=== PATIENT | female | born 1955 | race American Indian/Alaskan Native ===

== ENCOUNTER 2018-07-29 09:36 | Emergency (ER) | payer OTHER ==
[2018-07-29 10:00] VITALS: BP 159/59
--- NOTE | 2018-07-29 10:51 | Emergency Department Report ---
HPI - General Chief Complaint: Extremity Injury, Lower Time Seen by Provider: 07/29/18 10:27 - HPI HPI: 62-year-old female presents to the emergency department with a complaint of soreness to the anterior right knee after she had a fall about 1 week ago. She says that she either lost her balance or tripped on something but fell directly onto her knees. She has a past medical history of asthma, diabetes, high cholesterol, osteoarthritis of the knees. She is from [facility] and therefore does not have any local primary care physician or orthopedist. The patient has been able to ambulate since the fall/injury. ED Past Medical Hx - Past Medical History Previous Medical History?: Yes Hx Diabetes: Yes Hx Asthma: Yes Additional medical history: High cholesterol, Arthritis in knees - Surgical History Past Surgical History?: Yes Additional Surgical History: Robin Carpel tunnel surgery, C-sections x 2 - Social History Smoking Status: Never Smoker Substance Use Type: Prescribed - Medications Home Medications: Home Medications Medication Instructions Recorded Confirmed Last Taken Type HYDROcodone/APAP 5-325 [[place] 1 each PO Q6HR PRN #10 tablet 07/29/18 Unknown Rx 5/325] ED Review of Systems ROS: Stated complaint: KNEE INJURY Other details as noted in HPI Comment: All other systems reviewed and negative Musculoskeletal: arthralgia, myalgia. denies: back pain, joint swelling Neurological: denies: numbness, paresthesias Physical Exam - Physical Exam Vital Signs: Vital Signs 07/29/18 09:55 Temperature 98.1 F Pulse Rate 79 Respiratory 18 Rate Blood Pressure 159/59 O2 Sat by Pulse 99 Oximetry Physical Exam: GENERAL: The patient is well-developed well-nourished. HENT: Normocephalic. Atraumatic. Patient has moist mucous membranes. EYES: Extraocular motions are intact. NECK: Supple. Trachea is midline. CHEST/LUNGS: Clear to auscultation. There is no respiratory distress noted. HEART/CARDIOVASCULAR: Regular. There is no tachycardia. There is no murmur. ABDOMEN: There is no abdominal distention. SKIN: Skin is warm and dry. NEURO: The patient is awake, alert, and oriented. The patient is cooperative. The patient has no focal neurologic deficits. The patient has normal speech. MUSCULOSKELETAL: There is mild tenderness to palpation of the right anterior knee. No obvious deformity. Negative anterior and posterior drawer test and no laxity with valgus or varus stress of the affected right knee. ED Course Vital Signs 07/29/18 09:55 Temperature 98.1 F Pulse Rate 79 Respiratory 18 Rate Blood Pressure 159/59 O2 Sat by Pulse 99 Oximetry ED Medical Decision Making - Radiology Data Radiology results: image reviewed interpreted by me: X-ray of the right knee shows some arthritic changes but otherwise no fracture, dislocation or any acute process. I also reviewed with the radiology reading that agrees with the arthritic changes but also mentions a sclerotic lesion that needs follow-up regarding ruling out malignancy - Medical Decision Making This patient presents to the emergency department with right knee pain after having a fall 1 week prior. Since that time she has been walking around and ambulating and bearing weight on the affected right knee. On examination she has some mild tenderness to palpation but no obvious deformity. Negative anterior and posterior drawer test. No laxity to valgus or varus stress. X-ray shows some arthritic changes but otherwise no obvious acute process. She was given a small prescription for pain medication and some referrals for orthopedist. If she decides to return home to [place], she has been instructed to follow up with primary care and an orthopedist there. She will return to the ER with any worsening of her symptoms or any acute distress. - Differential Diagnosis osteoarthritis, joint effusion, fracture, dislocation Critical Care Time: No Critical care attestation.: If time is entered above; I have spent that time in minutes in the direct care of this critically ill patient, excluding procedure time. ED Disposition Clinical Impression: Fall Qualifiers: Encounter type: initial encounter Qualified Code(s): W19.XXXA - Unspecified fall, initial encounter Right knee pain Qualifiers: Chronicity: unspecified Qualified Code(s): M25.561 - Pain in right knee Disposition: DC-01 TO HOME OR SELFCARE Is pt being admited?: No Condition: Stable Instructions: Knee Pain (ED), Arthralgia (ED), Fall Prevention (ED) Additional Instructions: I am giving you a referral for two local orthopedic groups, to follow up regarding your knee pain, in case you decide to stay in [place]. If you go back to [place], make sure to follow up with primary care and an orthopedist. Return to the emergency Department with any worsening of your symptoms or any acute distress. You have been prescribed a medication that is sedating and therefore should not be taken prior to driving, working, and responsible for children and in no way should be mixed with alcohol of any quantity. Prescriptions: HYDROcodone/APAP 5-325 [[place] 5/325] 1 each PO Q6HR PRN #10 tablet PRN Reason: Pain Referrals: CIRO ABDI MD [Staff Physician] - 2-3 Days [facility] [Provider Group] - 2-3 Days Time of Disposition: 11:38
--- NOTE | 2018-07-29 12:32 | XRay Report ---
EXAM: XR KNEE 3V RT HISTORY: knee pain TECHNIQUE: 4 views COMPARISON: None available. FINDINGS: There is no acute bony fracture, or joint subluxation or dislocation seen. There is an approximately 7.6 mm CC by 5.3 mm transverse sclerotic lesion within the medial femoral epicondyle which may repres ent a bone island; sclerotic metastatic lesion cannot entirely exclude. Consider 6-12 month follow-up evaluation ensure interval stability as clinically warranted. No focal bone erosion is seen. There i s tricompartment osteoarthritis, especially prominent in the lateral joint compartment and patellofem oral joint, marked by mild joint space narrowing and mild marginal osteophytosis. No evidence for inf lammatory or erosive arthritis is seen. No suprapatellar soft tissue density reminiscent of a gross j oint effusion is seen. No radiodense soft tissue abnormality or foreign body is seen. IMPRESSION: 1. No acute bony fracture, or joint subluxation or dislocation seen. 2. Tricompartment osteoarthritis, especially prominent in the lateral joint compartment and patellof emoral joint, marked by mild joint space narrowing and mild marginal osteophytosis. 3. Approximately 7.6 mm CC by 5.3 mm transverse sclerotic lesion within the medial femoral epicondyl e which may represent a bone island; sclerotic metastatic lesion cannot entirely exclude. Consider 6- 12 month follow-up evaluation ensure interval stability as clinically warranted. No focal bone erosio n is seen. 4. No radiodense soft tissue abnormality or foreign body seen. This document is electronically signed by Alec Steele MD., July 29 2018 12:30:42 PM [facility]
== END 2018-07-29 11:47 | disposition home or self-care (01) ==
LOC: ED 09:36
DX: M25.561 Pain in right knee (principal); E11.9 Type 2 diabetes mellitus without complications; J45.909 Unspecified asthma, uncomplicated; E78.5 Hyperlipidemia, unspecified

== ENCOUNTER 2018-10-14 17:41 | Emergency (ER) | payer OTHER ==
[2018-10-14 18:13] VITALS: BP 180/98
[2018-10-14] MEDS ORDERED: DECADRON IM ONE (19:24)
[2018-10-14] MEDS ORDERED: PROVENTIL IH ONE (19:24)
--- NOTE | 2018-10-14 19:56 | Emergency Department Report ---
ED Shortness of Breath HPI - General Chief Complaint: Dyspnea/Respdistress Stated Complaint: SOB/DIZZY Time Seen by Provider: 10/14/18 19:10 Source: patient Mode of arrival: Ambulatory Limitations: No Limitations - History of Present Illness Initial Comments: Patient is a 52-year-old Afro-[place] female with history of asthma and hypertension who presents with shortness of breath dizziness 1 episode today is no chest pain no nausea vomiting diaphoresis no back pain . Symptoms are exacerbated by environmental exposure. pt attempt albuterol inhaler at home x 1 pt there is no fever or chills. MD Complaint: shortness of breath, cough, "asthma attack" Onset/Timin -: days(s) Severity: moderate Pain Scale: 5 Consistency: constant Improves With: nothing Worsens With: exertion Known History Of: asthma Associated Symptoms: cough Treatments Prior to Arrival: bronchodilator - Related Data Previous Rx's Medication Instructions Recorded Last Taken Type HYDROcodone/APAP 5-325 [[place] 1 each PO Q6HR PRN #10 tablet 07/29/18 Unknown Rx 5/325] Acetaminophen [Acetaminophen TAB] 1,000 mg PO Q6HR PRN #30 tablet 10/14/18 Unknown Rx Azithromycin [Zithromax Z-ZEE] 250 mg PO DAILY #6 tab 10/14/18 Unknown Rx Benzonatate [Tessalon Perles] 100 mg PO Q8HR PRN #30 capsule 10/14/18 Unknown Rx dexAMETHasone [Decadron] 4 mg PO Q12H 3 Days #6 tablet 10/14/18 Unknown Rx Allergies Allergy/AdvReac Type Severity Reaction Status Date / Time No Known Allergies Allergy Unverified 07/29/18 09:54 ED Review of Systems ROS: Stated complaint: SOB/DIZZY Other details as noted in HPI Constitutional: denies: chills, fever Eyes: denies: eye pain, eye discharge, vision change ENT: denies: ear pain, throat pain Respiratory: cough, shortness of breath, wheezing Cardiovascular: denies: chest pain, palpitations, paroxysmal nocturnal dyspnea Endocrine: no symptoms reported Gastrointestinal: denies: abdominal pain, nausea, vomiting, diarrhea Genitourinary: denies: urgency, dysuria, discharge Musculoskeletal: denies: back pain, joint swelling, arthralgia Skin: denies: rash, lesions Neurological: denies: headache, weakness, paresthesias Psychiatric: denies: anxiety, depression Hematological/Lymphatic: denies: easy bleeding, easy bruising ED Past Medical Hx - Past Medical History Previous Medical History?: Yes Hx Diabetes: Yes Hx Asthma: Yes Additional medical history: High cholesterol, Arthritis in knees - Surgical History Past Surgical History?: Yes Additional Surgical History: Robin Carpel tunnel surgery, C-sections x 2 - Social History Smoking Status: Never Smoker Substance Use Type: None - Medications Home Medications: Home Medications Medication Instructions Recorded Confirmed Last Taken Type HYDROcodone/APAP 5-325 [[place] 1 each PO Q6HR PRN #10 tablet 07/29/18 Unknown Rx 5/325] Acetaminophen [Acetaminophen TAB] 1,000 mg PO Q6HR PRN #30 tablet 10/14/18 Unknown Rx Azithromycin [Zithromax Z-ZEE] 250 mg PO DAILY #6 tab 10/14/18 Unknown Rx Benzonatate [Tessalon Perles] 100 mg PO Q8HR PRN #30 capsule 10/14/18 Unknown Rx dexAMETHasone [Decadron] 4 mg PO Q12H 3 Days #6 tablet 10/14/18 Unknown Rx ED Physical Exam - General Limitations: No Limitations General appearance: alert, in no apparent distress - Head Head exam: Present: atraumatic, normocephalic - Eye Eye exam: Present: normal appearance, PERRL, EOMI Pupils: Present: normal accommodation - ENT ENT exam: Present: normal orophraynx, mucous membranes moist, TM's normal bilaterally, normal external ear exam - Neck Neck exam: Present: full ROM. Absent: tenderness, lymphadenopathy, thyromegaly - Respiratory Respiratory exam: Present: wheezes. Absent: rales, rhonchi, stridor, chest wall tenderness - Cardiovascular Cardiovascular Exam: Present: regular rate, normal rhythm, normal heart sounds. Absent: systolic murmur, diastolic murmur, rubs, gallop - GI/Abdominal GI/Abdominal exam: Present: soft, normal bowel sounds. Absent: distended, tenderness, bruit, hernia - Rectal Rectal exam: Present: deferred - Extremities Exam Extremities exam: Present: normal inspection, full ROM, normal capillary refill. Absent: tenderness, pedal edema, joint swelling, calf tenderness - Back Exam Back exam: Present: normal inspection, full ROM. Absent: tenderness, CVA tenderness (R), CVA tenderness (L), rash noted - Neurological Exam Neurological exam: Present: alert, oriented X3, CN II-XII intact, normal gait - Psychiatric Psychiatric exam: Present: normal affect, normal mood - Skin Skin exam: Present: warm, dry, intact, normal color. Absent: rash ED Course Vital Signs 10/14/18 10/14/18 17:48 18:08 Temperature 97.8 F Pulse Rate 85 Respiratory 20 16 Rate Blood Pressure 180/98 O2 Sat by Pulse 99 Oximetry ED Medical Decision Making - EKG Data EKG shows normal: sinus rhythm, axis, intervals, QRS complexes, ST-T waves Rate: normal - EKG Data When compared to previous EKG there are: previous EKG unavailable Interpretation: normal EKG (EKG interp by ED attending NSR No ST Elevated DE ) - Radiology Data Radiology results: report reviewed, image reviewed Ordering Physician: QUIRINO BORREGO NP Date of Service: 10/14/18 Procedure(s): XR chest routine 2V Accession Number(s): [id number] cc: QUIRINO BORREGO NP Fluoro Time In Minutes: CHEST 2 VIEWS INDICATION / CLINICAL INFORMATION: Shortness of breath for one week. COMPARISON: None available. FINDINGS: SUPPORT DEVICES: None. HEART / MEDIASTINUM: No significant abnormality. LUNGS / PLEURA: No significant pulmonary or pleural abnormality. No pneumothorax. ADDITIONAL FINDINGS: Moderate thoracic spondylosis is noted without additional s ignificant findings. IMPRESSION: No acute abnormality of the chest. Signer Name: Eduardo Bella MD Signed: 10/14/2018 8:01 PM Workstation Name: [id number] Transcribed By: MN Dictated By: Eduardo Bella MD Electronically Authenticated By: Eduardo Bella MD Signed Date/Time: 10/14/182000 DD/ 99 TD/TT: - Medical Decision Making Symptoms improve the medications given in ED plan DC'd home with the wrong inhaler and prednisone azithromycin Tylenol when necessary Florencia Simon patient will follow up PCP in 2-3 days return to ED should symptoms worsen, wheezing is resolved pt is ambulatory in ed without increase sob or wheezing no cp Critical care attestation.: If time is entered above; I have spent that time in minutes in the direct care of this critically ill patient, excluding procedure time. ED Disposition Clinical Impression: Bronchitis Asthma Qualifiers: Asthma severity: moderate Asthma persistence: persistent Asthma complication type: unspecified Qualified Code(s): J45.40 - Moderate persistent asthma, uncomplicated Disposition: - TO HOME OR SELFCARE Is pt being admited?: No Does the pt Need Aspirin: No Condition: Stable Instructions: Chronic Bronchitis (ED), Asthma (ED) Prescriptions: Acetaminophen [Acetaminophen TAB] 1,000 mg PO Q6HR PRN #30 tablet PRN Reason: pain dexAMETHasone [Decadron] 4 mg PO Q12H 3 Days #6 tablet Benzonatate [Tessalon Perles] 100 mg PO Q8HR PRN #30 capsule PRN Reason: Cough Azithromycin [Zithromax Z-ZEE] 250 mg PO DAILY #6 tab Referrals: JULIANO JUÁREZ MD [Staff Physician] - 3-5 Days Forms: Work/School Release Form(ED) Time of Disposition: 21:07
--- NOTE | 2018-10-14 20:06 | XRay Report ---
CHEST 2 VIEWS INDICATION / CLINICAL INFORMATION: Shortness of breath for one week. COMPARISON: None available. FINDINGS: SUPPORT DEVICES: None. HEART / MEDIASTINUM: No significant abnormality. LUNGS / PLEURA: No significant pulmonary or pleural abnormality. No pneumothorax. ADDITIONAL FINDINGS: Moderate thoracic spondylosis is noted without additional significant findings. IMPRESSION: No acute abnormality of the chest. Signer Name: Eduardo Bella MD Signed: 10/14/2018 8:01 PM Workstation Name: [id number]
== END 2018-10-14 21:10 | disposition home or self-care (01) ==
LOC: ED 17:41
DX: J45.909 Unspecified asthma, uncomplicated (principal); E11.9 Type 2 diabetes mellitus without complications; E78.00 Pure hypercholesterolemia, unspecified; M19.90 Unspecified osteoarthritis, unspecified site; Z98.890 Other specified postprocedural states; Z79.899 Other long term (current) drug therapy
CPT/HCPCS: 71046; 93005; 93010; 96372; 99283; J1100

== ENCOUNTER 2018-10-18 19:24 | Emergency (ER) | payer OTHER ==
--- NOTE | 2018-10-18 20:03 | Event Note ---
ED Screening Note Date of service: 10/18/18 Time: 20:03 ED Screening Note: 62 yo returns cc of sob same as last visit This initial assessment/diagnostic orders/clinical plan/treatment(s) is/are subject to change based on patients health status, clinical progression and re- assessment by fellow clinical providers in the ED. Further treatment and workup at subsequent clinical providers discretion. Patient/guardian urged not to elope from the ED as their condition may be serious if not clinically assessed and managed. Initial orders include:
[2018-10-18 20:29] LABS: Basophils # (Auto) 0.1 K/mm3 (0.0-0.1); Eosinophils # (Auto) 0.1 K/mm3 (0.0-0.4); Eosinophils % (Auto) 1.5 % (0.0-4.3); Hematocrit 40.6 % (30.3-42.9); Hemoglobin 13.7 gm/dl (10.1-14.3); Lymphocytes % (Auto) 30.2 % (13.4-35.0); Mean Corpuscular HGB Conc 34 % (30-34); Mean Corpuscular Volume 86 fl (79-97); Monocytes # (Auto) 0.6 K/mm3 (0.0-0.8); Monocytes % (Auto) 5.8 % (0.0-7.3); Platelet Count 267 K/mm3 (140-440); Red Blood Count 4.73 M/mm3 (3.65-5.03); Red Cell Distribution Width 15.1 % (13.2-15.2)
[2018-10-18 21:00] VITALS: BP 157/85
[2018-10-18 21:02] LABS: Creatine Kinase MB 2.6 ng/mL (0.0-4.0)
[2018-10-18] MEDS ORDERED: DUONEB *Not for PRN Use IH ONE (21:02)
[2018-10-18 21:06] LABS: BUN/Creatinine Ratio 20; Blood Urea Nitrogen 14 mg/dL (7-17); Calcium 9.9 mg/dL (8.4-10.2); Hemolysis Index 0
[2018-10-18] MEDS ORDERED: K-DUR PO ONE (21:10)
--- NOTE | 2018-10-18 21:57 | XRay Report ---
CHEST 1 VIEW 10/18/2018 9:19 PM INDICATION / CLINICAL INFORMATION: productive cough. COMPARISON: Chest x-ray 10/14/2018 FINDINGS: SUPPORT DEVICES: None. HEART / MEDIASTINUM: No significant abnormality. LUNGS / PLEURA: Calcified left lower lobe granuloma, unchanged. No significant pulmonary or pleural a bnormality. No pneumothorax. ADDITIONAL FINDINGS: No significant additional findings. IMPRESSION: 1. No acute findings. Signer Name: Neel Rooney MD Signed: 10/18/2018 9:52 PM Workstation Name: [id number]
--- NOTE | 2018-10-18 22:18 | Emergency Department Report ---
ED Shortness of Breath HPI - General Chief Complaint: Dyspnea/Respdistress Stated Complaint: CRISTOPHER Time Seen by Provider: 10/18/18 20:02 Source: patient Mode of arrival: Ambulatory Limitations: No Limitations - History of Present Illness Initial Comments: Patient is a 62-year-old female with past medical history of COPD/asthma as well as diabetes who is presenting with shortness of breath. Patient is having some increased shortness of breath with cough was productive of clear sputum for last 4 days. Patient states she was here several days ago and was given a prescription for Z-Brodie for acute bronchitis in the setting of COPD. Patient also started on 3 days of Decadron and Tessalon Perles. Patient states she's continued to cough with shortness of breath. Patient denies any chest pain nausea vomiting diarrhea had fevers or chills. Patient states she has continued to have exposure to secondhand smoke. - Related Data Previous Rx's Medication Instructions Recorded Last Taken Type HYDROcodone/APAP 5-325 [[place] 1 each PO Q6HR PRN #10 tablet 07/29/18 Unknown Rx 5/325] Acetaminophen [Acetaminophen TAB] 1,000 mg PO Q6HR PRN #30 tablet 10/14/18 Unknown Rx Azithromycin [Zithromax Z-BRODIE] 250 mg PO DAILY #6 tab 10/14/18 Unknown Rx Benzonatate [Tessalon Perles] 100 mg PO Q8HR PRN #30 capsule 10/14/18 Unknown Rx dexAMETHasone [Decadron] 4 mg PO Q12H 3 Days #6 tablet 10/14/18 Unknown Rx Fluticasone [Flonase] 1 spray NS QDAY #1 bottle 10/18/18 Unknown Rx guaiFENesin/CODEINE [Robitussin AC] 5 ml PO Q6HR PRN #100 oral.liqd 10/18/18 Unknown Rx Allergies Allergy/AdvReac Type Severity Reaction Status Date / Time No Known Allergies Allergy Unverified 07/29/18 09:54 ED Review of Systems ROS: Stated complaint: CRISTOPHER Other details as noted in HPI Comment: All other systems reviewed and negative ED Past Medical Hx - Past Medical History Previous Medical History?: Yes Hx Diabetes: Yes Hx Asthma: Yes Additional medical history: High cholesterol, Arthritis in knees - Surgical History Past Surgical History?: Yes Additional Surgical History: Robin Carpel tunnel surgery, C-sections x 2 - Social History Smoking Status: Never Smoker Substance Use Type: None - Medications Home Medications: Home Medications Medication Instructions Recorded Confirmed Last Taken Type HYDROcodone/APAP 5-325 [[place] 1 each PO Q6HR PRN #10 tablet 07/29/18 Unknown Rx 5/325] Acetaminophen [Acetaminophen TAB] 1,000 mg PO Q6HR PRN #30 tablet 10/14/18 Unknown Rx Azithromycin [Zithromax Z-BRODIE] 250 mg PO DAILY #6 tab 10/14/18 Unknown Rx Benzonatate [Tessalon Perles] 100 mg PO Q8HR PRN #30 capsule 10/14/18 Unknown Rx dexAMETHasone [Decadron] 4 mg PO Q12H 3 Days #6 tablet 10/14/18 Unknown Rx Fluticasone [Flonase] 1 spray NS QDAY #1 bottle 10/18/18 Unknown Rx guaiFENesin/CODEINE [Robitussin AC] 5 ml PO Q6HR PRN #100 oral.liqd 10/18/18 Unknown Rx ED Physical Exam - General Limitations: No Limitations General appearance: alert, in no apparent distress - Head Head exam: Present: atraumatic, normocephalic - Eye Eye exam: Present: normal appearance - ENT ENT exam: Present: mucous membranes moist - Neck Neck exam: Present: normal inspection - Respiratory Respiratory exam: Present: normal lung sounds bilaterally, prolonged expiratory. Absent: respiratory distress, wheezes, rales, rhonchi - Cardiovascular Cardiovascular Exam: Present: regular rate, normal rhythm, normal heart sounds. Absent: systolic murmur, diastolic murmur, rubs, gallop - GI/Abdominal GI/Abdominal exam: Present: soft, normal bowel sounds. Absent: distended, tenderness, guarding, rebound - Extremities Exam Extremities exam: Present: normal inspection - Back Exam Back exam: Present: normal inspection - Neurological Exam Neurological exam: Present: alert, oriented X3 - Psychiatric Psychiatric exam: Present: normal affect, normal mood - Skin Skin exam: Present: warm, dry, intact, normal color. Absent: rash ED Course Vital Signs 10/18/18 10/18/18 20:03 20:59 Temperature 98.7 F Pulse Rate 88 85 Respiratory 20 17 Rate Blood Pressure 161/72 Blood Pressure 157/85 [Left] O2 Sat by Pulse 100 99 Oximetry ED Medical Decision Making - Lab Data Result diagrams: 10/18/18 20:15 10/18/18 20:15 Lab Results 10/18/18 10/18/18 10/18/18 Range/Units 20:15 20:15 20:15 WBC 9.9 (4.5-11.0) K/mm3 RBC 4.73 (3.65-5.03) M/mm3 Hgb 13.7 (10.1-14.3) gm/dl Hct 40.6 (30.3-42.9) % MCV 86 (79-97) fl MCH 29 (28-32) pg MCHC 34 (30-34) % RDW 15.1 (13.2-15.2) % Plt Count 267 (140-440) K/mm3 Lymph % (Auto) 30.2 (13.4-35.0) % [place] % (Auto) 5.8 (0.0-7.3) % Eos % (Auto) 1.5 (0.0-4.3) % Baso % (Auto) 1.0 (0.0-1.8) % Lymph # 3.0 (1.2-5.4) K/mm3 [place] # 0.6 (0.0-0.8) K/mm3 Eos # 0.1 (0.0-0.4) K/mm3 Baso # 0.1 (0.0-0.1) K/mm3 Seg Neutrophils % 61.5 (40.0-70.0) % Seg Neutrophils # 6.1 (1.8-7.7) K/mm3 D-Dimer 199.55 (0-234) ng/mlDDU Sodium 139 (137-145) mmol/L Potassium 2.8 L* (3.6-5.0) mmol/L Chloride 94.0 L (98-107) mmol/L Carbon Dioxide 30 (22-30) mmol/L Anion Gap 18 mmol/L BUN 14 (7-17) mg/dL Creatinine 0.7 (0.7-1.2) mg/dL Estimated GFR > 60 ml/min BUN/Creatinine Ratio 20 % Glucose 271 H (65-100) mg/dL Lactic Acid (0.7-2.0) mmol/L Calcium 9.9 (8.4-10.2) mg/dL Total Creatine Kinase 149 H (30-135) units/L CK-MB (CK-2) 2.6 (0.0-4.0) ng/mL CK-MB (CK-2) Rel Index 1.7 (0-4) 10/18/18 Range/Units Unknown WBC (4.5-11.0) K/mm3 RBC (3.65-5.03) M/mm3 Hgb (10.1-14.3) gm/dl Hct (30.3-42.9) % MCV (79-97) fl MCH (28-32) pg MCHC (30-34) % RDW (13.2-15.2) % Plt Count (140-440) K/mm3 Lymph % (Auto) (13.4-35.0) % [place] % (Auto) (0.0-7.3) % Eos % (Auto) (0.0-4.3) % Baso % (Auto) (0.0-1.8) % Lymph # (1.2-5.4) K/mm3 [place] # (0.0-0.8) K/mm3 Eos # (0.0-0.4) K/mm3 Baso # (0.0-0.1) K/mm3 Seg Neutrophils % (40.0-70.0) % Seg Neutrophils # (1.8-7.7) K/mm3 D-Dimer (0-234) ng/mlDDU Sodium (137-145) mmol/L Potassium (3.6-5.0) mmol/L Chloride (98-107) mmol/L Carbon Dioxide (22-30) mmol/L Anion Gap mmol/L BUN (7-17) mg/dL Creatinine (0.7-1.2) mg/dL Estimated GFR ml/min BUN/Creatinine Ratio % Glucose (65-100) mg/dL Lactic Acid 2.40 H* (0.7-2.0) mmol/L Calcium (8.4-10.2) mg/dL Total Creatine Kinase (30-135) units/L CK-MB (CK-2) (0.0-4.0) ng/mL CK-MB (CK-2) Rel Index (0-4) - Radiology Data Chest x-ray within normal limits - Medical Decision Making Chest the patient has returned with continued shortness of breath with cough d- dimer was ordered to rule out a possibility for PE. This was negative. Patient given a neb treatment was did help with her symptoms. Patient likely with a acute exacerbation of chronic bronchitis. Patient was referred to pulmonology for further care. Patient given some additional medications for her cough. Patient discharged home. Critical care attestation.: If time is entered above; I have spent that time in minutes in the direct care of this critically ill patient, excluding procedure time. ED Disposition Clinical Impression: Chronic bronchitis with acute exacerbation Disposition: DC-01 TO HOME OR SELFCARE Is pt being admited?: No Does the pt Need Aspirin: No Condition: Stable Instructions: Chronic Bronchitis (ED) Referrals: GENIE COLIN MD [Staff Physician] - 3-5 Days Time of Disposition: 22:18
== END 2018-10-18 23:25 | disposition home or self-care (01) ==
LOC: ED 19:24
DX: J20.9 Acute bronchitis, unspecified (principal); J42 Unspecified chronic bronchitis; E11.9 Type 2 diabetes mellitus without complications; E78.00 Pure hypercholesterolemia, unspecified; M19.90 Unspecified osteoarthritis, unspecified site; Z98.890 Other specified postprocedural states; Z79.899 Other long term (current) drug therapy
CPT/HCPCS: 36415; 71045; 80048; 82140; 82550; 82553; 85025; 85379; 94640; 94644; 99284

== ENCOUNTER 2019-03-10 18:49 | Emergency (ER) | payer OTHER ==
--- NOTE | 2019-03-10 19:22 | Emergency Department Report ---
Blank Doc - Documentation Documentation: 63-year-old female that presents with right arm pain. Denies any injuries. This initial assessment/diagnostic orders/clinical plan/treatment(s) is/are subject to change based on patient's health status, clinical progression and re- assessment by fellow clinical providers in the ED. Further treatment and workup at subsequent clinical providers discretion. Patient/guardians urged not to elope from the ED as their condition may be serious if not clinically assessed and managed. Initial orders include: 1- Patient sent to [facility] for further evaluation and treatment 2- Doppler US for right arm
[2019-03-10 22:54] VITALS: BP 140/62
--- NOTE | 2019-03-10 22:58 | XRay Report ---
CHEST 1 VIEW INDICATION: MAIN: Chest Pain FOR 2 TO 3 DAYS. COMPARISON: 10/18/2018 FINDINGS: Support devices: None. Heart: Normal. Lungs/Pleura: No acute pulmonary or pleural findings. IMPRESSION: 1. No acute findings. Signer Name: Humble Pacheco MD Signed: 03/10/2019 10:53 PM Workstation Name: [id number]
[2019-03-10 23:46] LABS: Basophils # (Auto) 0.1 K/mm3 (0.0-0.1); Basophils % (Auto) 0.6 % (0.0-1.8); Eosinophils # (Auto) 0.1 K/mm3 (0.0-0.4); Eosinophils % (Auto) 1.1 % (0.0-4.3); Hematocrit 40.2 % (30.3-42.9); Hemoglobin 13.4 gm/dl (10.1-14.3); Lymphocytes # (Auto) 2.6 K/mm3 (1.2-5.4); Lymphocytes % (Auto) 27.3 % (13.4-35.0); Mean Corpuscular HGB Conc 33 % (30-34); Mean Corpuscular Volume 86 fl (79-97); Monocytes # (Auto) 0.6 K/mm3 (0.0-0.8); Monocytes % (Auto) 6.1 % (0.0-7.3); Platelet Count 269 K/mm3 (140-440); Red Blood Count 4.68 M/mm3 (3.65-5.03); Red Cell Distribution Width 15.4 % (13.2-15.2)
[2019-03-11 00:13] LABS: Alanine Aminotransferase 13 units/L (7-56); Albumin 4.3 g/dL (3.9-5); BUN/Creatinine Ratio 20; Blood Urea Nitrogen 12 mg/dL (7-17); Hemolysis Index 14
--- NOTE | 2019-03-11 00:29 | Emergency Department Report ---
ED General Adult HPI - General Chief complaint: Extremity Injury, Upper Stated complaint: RT ARM PAIN/CRISTOPHER Time Seen by Provider: 03/10/19 19:20 Source: patient Mode of arrival: Ambulatory Limitations: No Limitations - History of Present Illness Initial comments: Mrs. Sahu is a 63 yo female with history of hypertension diabetes mellitus dyslipidemia and arthritis in the knees presents with right arm pain for several days. Pain is in the right upper bicep. Worse with movement. Mild soreness. Upon further questioning she's had mild chest tightness with shortness of breath intermittently. Pain is nondescript and mild. No association with exertion. She states that she's been stressed with her grandcharlie. She is visiting her daughter from [place]. She also was concerned about getting sick. She was without her medications for several days due to insurance issues. She was able to obtain her prescriptions a few days ago. -: Gradual, days(s) (a few days) Location: right, upper extremity Severity scale (0 -10): 5 Quality: aching Consistency: intermittent Improves with: rest Worsens with: movement Associated Symptoms: chest pain, shortness of breath Treatments Prior to Arrival: none - Related Data Previous Rx's Medication Instructions Recorded Last Taken Type HYDROcodone/APAP 5-325 [[place] 1 each PO Q6HR PRN #10 tablet 07/29/18 Unknown Rx 5/325] Acetaminophen [Acetaminophen TAB] 1,000 mg PO Q6HR PRN #30 tablet 10/14/18 Unknown Rx Azithromycin [Zithromax Z-ZEE] 250 mg PO DAILY #6 tab 10/14/18 Unknown Rx Benzonatate [Tessalon Perles] 100 mg PO Q8HR PRN #30 capsule 10/14/18 Unknown Rx dexAMETHasone [Decadron] 4 mg PO Q12H 3 Days #6 tablet 10/14/18 Unknown Rx Fluticasone [Flonase] 1 spray NS QDAY #1 bottle 10/18/18 Unknown Rx guaiFENesin/CODEINE [Robitussin AC] 5 ml PO Q6HR PRN #100 oral.liqd 10/18/18 Unknown Rx Allergies Allergy/AdvReac Type Severity Reaction Status Date / Time No Known Allergies Allergy Unverified 07/29/18 09:54 ED Review of Systems ROS: Stated complaint: RT ARM PAIN/CRISTOPHER Other details as noted in HPI Comment: All other systems reviewed and negative Constitutional: denies: fever, malaise Respiratory: shortness of breath. denies: cough Cardiovascular: chest pain Gastrointestinal: denies: abdominal pain, nausea, vomiting ED Past Medical Hx - Past Medical History Previous Medical History?: Yes Hx Diabetes: Yes Hx Asthma: Yes Additional medical history: High cholesterol, Arthritis in knees - Surgical History Past Surgical History?: Yes Additional Surgical History: Robin Carpel tunnel surgery, C-sections x 2 - Social History Smoking Status: Never Smoker Substance Use Type: None - Medications Home Medications: Home Medications Medication Instructions Recorded Confirmed Last Taken Type HYDROcodone/APAP 5-325 [[place] 1 each PO Q6HR PRN #10 tablet 07/29/18 Unknown Rx 5/325] Acetaminophen [Acetaminophen TAB] 1,000 mg PO Q6HR PRN #30 tablet 10/14/18 Unknown Rx Azithromycin [Zithromax Z-ZEE] 250 mg PO DAILY #6 tab 10/14/18 Unknown Rx Benzonatate [Tessalon Perles] 100 mg PO Q8HR PRN #30 capsule 10/14/18 Unknown Rx dexAMETHasone [Decadron] 4 mg PO Q12H 3 Days #6 tablet 10/14/18 Unknown Rx Fluticasone [Flonase] 1 spray NS QDAY #1 bottle 10/18/18 Unknown Rx guaiFENesin/CODEINE [Robitussin AC] 5 ml PO Q6HR PRN #100 oral.liqd 10/18/18 Unknown Rx ED Physical Exam - General Limitations: No Limitations General appearance: alert, in no apparent distress - Head Head exam: Present: atraumatic, normocephalic - Eye Eye exam: Present: normal appearance - ENT ENT exam: Present: mucous membranes moist - Neck Neck exam: Present: normal inspection, full ROM - Respiratory Respiratory exam: Present: normal lung sounds bilaterally. Absent: respiratory distress, wheezes, rales, rhonchi - Cardiovascular Cardiovascular Exam: Present: regular rate, normal rhythm, normal heart sounds. Absent: systolic murmur, diastolic murmur, rubs, gallop - GI/Abdominal GI/Abdominal exam: Present: soft, normal bowel sounds. Absent: distended, tenderness, guarding, rebound - Extremities Exam Extremities exam: Present: normal inspection, normal capillary refill - Expanded Upper Extremity Exam Right Shoulder Exam: Present: normal inspection, full ROM. Absent: tenderness, swelling Upper Arm exam: Present: normal inspection, full ROM. Absent: tenderness, swelling, abrasion Elbow exam: Present: normal inspection, full ROM. Absent: tenderness, swelling Forearm Wrist exam: Present: normal inspection, full ROM Hand Wrist exam: Present: normal inspection, full ROM - Neurological Exam Neurological exam: Present: alert, oriented X3 - Psychiatric Psychiatric exam: Present: normal affect, normal mood - Skin Skin exam: Present: warm, dry, intact, normal color. Absent: rash ED Course Vital Signs 03/10/19 03/10/19 03/10/19 19:05 19:21 22:47 Temperature 98.5 F 98.5 F Pulse Rate 87 86 81 Respiratory 18 18 16 Rate Blood Pressure 154/90 154/90 Blood Pressure 140/62 [Left] O2 Sat by Pulse 98 98 97 Oximetry ED Medical Decision Making - Lab Data Result diagrams: 03/10/19 23:22 03/10/19 23:22 Laboratory Results - last 24 hr 03/10/19 03/10/19 03/10/19 23:22 23:22 23:22 WBC 9.4 RBC 4.68 Hgb 13.4 Hct 40.2 MCV 86 MCH 29 MCHC 33 RDW 15.4 H Plt Count 269 Lymph % (Auto) 27.3 Irion % (Auto) 6.1 Eos % (Auto) 1.1 Baso % (Auto) 0.6 Lymph # 2.6 Irion # 0.6 Eos # 0.1 Baso # 0.1 Seg Neutrophils % 64.9 Seg Neutrophils # 6.1 D-Dimer 185.36 Sodium 139 Potassium 3.7 Chloride 95.9 L Carbon Dioxide 28 Anion Gap 19 BUN 12 Creatinine 0.6 L Estimated GFR > 60 BUN/Creatinine Ratio 20 Glucose 145 H Calcium 10.0 Total Bilirubin 0.30 AST 15 ALT 13 Alkaline Phosphatase 86 Troponin T < 0.010 NT-Pro-B Natriuret Pep Total Protein 7.8 Albumin 4.3 Albumin/Globulin Ratio 1.2 03/10/19 23:22 WBC RBC Hgb Hct MCV MCH MCHC RDW Plt Count Lymph % (Auto) Irion % (Auto) Eos % (Auto) Baso % (Auto) Lymph # Irion # Eos # Baso # Seg Neutrophils % Seg Neutrophils # D-Dimer Sodium Potassium Chloride Carbon Dioxide Anion Gap BUN Creatinine Estimated GFR BUN/Creatinine Ratio Glucose Calcium Total Bilirubin AST ALT Alkaline Phosphatase Troponin T NT-Pro-B Natriuret Pep 10.43 Total Protein Albumin Albumin/Globulin Ratio - EKG Data 03/11/19 00:26 EKG obtained 2249 Normal sinus rhythm rate 80 beats a minute normal axis prolonged QT interval positive LVH no ST elevation nonspecific T-wave pattern diffuse T-wave flattening - Radiology Data Radiology results: report reviewed Chest radiograph no acute findings - Medical Decision Making Mrs. Sahu is a 63-year-old female presents with right arm pain. Upon further questioning she had mild chest pain with shortness of breath. Heart score is 3. I do not feel that the pain is indicative of angina. Pain is worse with movement. However I do feel that it is prudent that she receives outpatient cardiology referral. I did arrange for cardiology follow-up. She understands return for any persistent or returning system. CBC demonstrates troponin within normal limits. BMP within normal lives. Normal physical exam. No indication of fracture or vascular compromise of the upper extremity. I do not suspect DVT. No swelling or tenderness present. Critical care attestation.: If time is entered above; I have spent that time in minutes in the direct care of this critically ill patient, excluding procedure time. ED Disposition Clinical Impression: Right arm pain, Chest pain Disposition: -01 TO HOME OR SELFCARE Is pt being admited?: No Does the pt Need Aspirin: No Condition: Stable Instructions: Chest Pain (ED) Referrals: BHAVIK LUGO MD [Staff Physician] - 3-5 Days
== END 2019-03-11 04:31 | disposition home or self-care (01) ==
LOC: ED 18:49
DX: M79.601 Pain in right arm (principal); R07.89 Other chest pain; R06.02 Shortness of breath; E11.9 Type 2 diabetes mellitus without complications; J45.909 Unspecified asthma, uncomplicated; E78.00 Pure hypercholesterolemia, unspecified; Z79.899 Other long term (current) drug therapy
CPT/HCPCS: 36415; 71045; 80053; 83880; 84484; 85025; 85379; 93005; 93010

== ENCOUNTER 2019-04-15 16:27 | Emergency (ER) | payer OTHER ==
[2019-04-15 17:43] LABS: Hematocrit 40.2 % (30.3-42.9); Hemoglobin 13.5 gm/dl (10.1-14.3); Mean Corpuscular HGB Conc 34 % (30-34); Mean Corpuscular Volume 85 fl (79-97); Platelet Count 286 K/mm3 (140-440); Red Blood Count 4.73 M/mm3 (3.65-5.03); Red Cell Distribution Width 15.6 % (13.2-15.2)
[2019-04-15 18:05] LABS: BUN/Creatinine Ratio 18; Blood Urea Nitrogen 11 mg/dL (7-17); Calcium 9.7 mg/dL (8.4-10.2); Hemolysis Index 8
--- NOTE | 2019-04-15 18:31 | Emergency Department Report ---
ED General Adult HPI - General Chief complaint: Extremity Problem,Nontraumatic Stated complaint: DIZZY, LEG SWOLLENING Time Seen by Provider: 04/15/19 18:25 Source: patient Mode of arrival: Ambulatory Limitations: No Limitations - History of Present Illness Initial comments: 63-year-old female with history of hypertension, diabetes, dyslipidemia and arth ritis presents with complaint of swelling to the bilateral lower extremities. Patient states that she has noted the swelling for the past week. Patient denies any history of DVT or PE. Patient denies any calf tenderness. Patient denies any chest pain or shortness of breath. Patient that she currently is on hydrochlorothiazide therapy. Patient denies any trauma to the extremities. Patient states she has no prior history of CHF - Related Data Home Medications Medication Instructions Recorded Confirmed Last Taken Aspirin EC [Halfprin EC] 81 mg PO DAILY 04/15/19 04/15/19 Unknown Lovastatin [Altoprev] 40 mg PO QHS 04/15/19 04/15/19 Unknown amLODIPine 5 mg PO DAILY 04/15/19 04/15/19 Unknown atenoloL [Tenormin] 25 mg PO DAILY 04/15/19 04/15/19 Unknown hydroCHLOROthiazide [HCTZ] 25 mg PO DAILY 04/15/19 04/15/19 Unknown metFORMIN [Glucophage] 500 mg PO BID 04/15/19 04/15/19 Unknown Previous Rx's Medication Instructions Recorded Last Taken Type Fluticasone [Flonase] 1 spray NS QDAY #1 bottle 10/18/18 Unknown Rx Allergies Allergy/AdvReac Type Severity Reaction Status Date / Time No Known Allergies Allergy Unverified 07/29/18 09:54 ED Review of Systems ROS: Stated complaint: DIZZY, LEG SWOLLENING Other details as noted in HPI Constitutional: denies: chills, fever Eyes: denies: eye pain, eye discharge, vision change ENT: denies: ear pain, throat pain Respiratory: denies: cough, shortness of breath, wheezing Cardiovascular: denies: chest pain, palpitations Endocrine: no symptoms reported Gastrointestinal: denies: abdominal pain, nausea, diarrhea Genitourinary: denies: urgency, dysuria, discharge Musculoskeletal: other (Swelling). denies: back pain, joint swelling, arthralgia Skin: denies: rash, lesions Neurological: denies: headache, weakness, paresthesias Psychiatric: denies: anxiety, depression Hematological/Lymphatic: denies: easy bleeding, easy bruising ED Past Medical Hx - Past Medical History Previous Medical History?: Yes Hx Diabetes: Yes Hx Asthma: Yes Additional medical history: High cholesterol, Arthritis in knees - Surgical History Past Surgical History?: Yes Additional Surgical History: Robin Carpel tunnel surgery, C-sections x 2 - Social History Smoking Status: Never Smoker Substance Use Type: None - Medications Home Medications: Home Medications Medication Instructions Recorded Confirmed Last Taken Type Fluticasone [Flonase] 1 spray NS QDAY #1 bottle 10/18/18 04/15/19 Unknown Rx Aspirin EC [Halfprin EC] 81 mg PO DAILY 04/15/19 04/15/19 Unknown History Lovastatin [Altoprev] 40 mg PO QHS 04/15/19 04/15/19 Unknown History amLODIPine 5 mg PO DAILY 04/15/19 04/15/19 Unknown History atenoloL [Tenormin] 25 mg PO DAILY 04/15/19 04/15/19 Unknown History hydroCHLOROthiazide [HCTZ] 25 mg PO DAILY 04/15/19 04/15/19 Unknown History metFORMIN [Glucophage] 500 mg PO BID 04/15/19 04/15/19 Unknown History ED Physical Exam - General Limitations: No Limitations General appearance: alert, in no apparent distress - Head Head exam: Present: atraumatic, normocephalic - Eye Eye exam: Present: normal appearance - ENT ENT exam: Present: mucous membranes moist - Neck Neck exam: Present: normal inspection - Respiratory Respiratory exam: Present: normal lung sounds bilaterally. Absent: respiratory distress - Cardiovascular Cardiovascular Exam: Present: regular rate, normal rhythm. Absent: systolic murmur, diastolic murmur, rubs, gallop - GI/Abdominal GI/Abdominal exam: Present: soft, normal bowel sounds - Extremities Exam Extremities exam: Present: normal inspection - Back Exam Back exam: Present: normal inspection - Neurological Exam Neurological exam: Present: alert, oriented X3 - Psychiatric Psychiatric exam: Present: normal affect, normal mood - Skin Skin exam: Present: warm, dry, intact, normal color, other (Patient has minimal swelling to bilateral lower extremities; no evidence of erythema). Absent: rash ED Course Vital Signs 04/15/19 04/15/19 17:19 18:35 Temperature 98.1 F 98.0 F Pulse Rate 80 72 Respiratory 18 18 Rate Blood Pressure 172/70 Blood Pressure 163/74 [Right] O2 Sat by Pulse 96 98 Oximetry ED Medical Decision Making - Lab Data Result diagrams: 04/15/19 17:26 04/15/19 17:26 - Medical Decision Making Patient is on hydrocholorothiazide therapy currently. Patient has minimal swelling present and will be discharged to follow-up with PCP. - Differential Diagnosis CHF; Dehydration; Anemia; Critical care attestation.: If time is entered above; I have spent that time in minutes in the direct care of this critically ill patient, excluding procedure time. ED Disposition Clinical Impression: Edema, lower extremity Disposition: DC-01 TO HOME OR SELFCARE Is pt being admited?: No Does the pt Need Aspirin: No Condition: Stable Instructions: Leg Edema (ED) Time of Disposition: 19:47 Print Language: UKRAINIAN
[2019-04-15 18:37] VITALS: BP 163/74
--- NOTE | 2019-04-15 19:28 | XRay Report ---
CHEST 2 VIEWS INDICATION / CLINICAL INFORMATION: SOB, COUGH, BILAT LL EDEMA. COMPARISON: None available. FINDINGS: SUPPORT DEVICES: None. HEART / MEDIASTINUM: No significant abnormality. LUNGS / PLEURA: No significant pulmonary or pleural abnormality. No pneumothorax. ADDITIONAL FINDINGS: No significant additional findings. IMPRESSION: 1. No acute findings. Signer Name: Aron Sosa MD Signed: 04/15/2019 7:23 PM Workstation Name: [id number]
== END 2019-04-15 19:53 | disposition home or self-care (01) ==
LOC: ED 16:27
DX: R60.0 Localized edema (principal); E11.9 Type 2 diabetes mellitus without complications; J45.909 Unspecified asthma, uncomplicated; M13.862 Other specified arthritis, left knee; M13.861 Other specified arthritis, right knee; E78.00 Pure hypercholesterolemia, unspecified; Z98.890 Other specified postprocedural states; Z79.899 Other long term (current) drug therapy
CPT/HCPCS: 36415; 71046; 80048; 83880; 85027; 99283

== ENCOUNTER 2019-12-15 17:08 | Emergency (ER) | payer SELFPAY ==
[2019-12-15 17:31] VITALS: BP 160/89
--- NOTE | 2019-12-15 17:44 | Emergency Department Report ---
Chief Complaint: Hyperglycemia Stated Complaint: HIGH GLUCOSE/HBP - HPI History of Present Illness: The patient was evaluated in the emergency department for symptoms described in the history of present illness. He/she was evaluated in the context of the global COVID-19 pandemic, which necessitated consideration that the patient might be at risk for infection with the virus that causes COVID-19. Institutional protocols and algorithms that pertain to the evaluation of patients at risk for COVID-19 are in a state of rapid change based on information released by regulatory bodies including the CDC and federal and state organizations. These policies and algorithms were followed during the patient's care in the emergency department. Please note that these policies, procedures and recommendations changed on a rapid basis. 64 -[place] female with past medical history of diabetes and hypertension presents to the emergency room stating that her blood sugar 228. She took her Metformin and her blood sugar came down to 147. Patient reports she takes metformin amlodipine atenolol. She is followed by [facility]. And is calling them in the morning to make a follow-up appointment. - Exam Vital Signs: Vital Signs 12/15/19 17:27 Temperature 98.5 F Pulse Rate 87 Respiratory 14 Rate Blood Pressure 160/89 O2 Sat by Pulse 99 Oximetry Physical Exam: Gen: alert oriented NAD Cardic: regular rate and rhythm no murmurs appreciated Resp: Clear to auscultation bilateral no wheezing no rales or rhonchi. Abdomen: Soft nontender nondistended normal bowel sounds. Ambulatory without difficulties. MSE screening note: Focused history and physical exam performed. Due to findings the following was ordered: 64 -[place] female with past medical history of diabetes and hypertension presents to the emergency room stating that her blood sugar 228. She took her Metformin and her blood sugar came down to 147. Patient reports she takes metformin amlodipine atenolol. She is followed by [facility]. And is calling them in the morning to make a follow-up appointment. Blood sugar here in the triage is 157. Blood pressure stable at 160/89. ED Disposition for MSE Disposition: MED SCREENING EXAM-LEFT Is pt being admited?: No Does the pt Need Aspirin: No Condition: Stable Referrals: [facility] [Provider Group] - 3-5 Days
== END 2019-12-15 17:48 | disposition left against medical advice (07) ==
LOC: ED 17:08
DX: E11.65 Type 2 diabetes mellitus with hyperglycemia (principal); I10 Essential (primary) hypertension; Z53.21 Procedure and treatment not carried out due to patient leaving prior to being seen by health care provider
CPT/HCPCS: 82962

== ENCOUNTER 2020-06-02 18:04 | Emergency (ER) | payer MEDICARE ==
[2020-06-02 19:12] VITALS: BP 167/70
--- NOTE | 2020-06-02 20:22 | Emergency Department Report ---
ED General Adult HPI - General Chief complaint: Pain General Stated complaint: LT SIDE/SHOULDER/FEET PAIN Time Seen by Provider: 06/02/20 20:00 Source: patient Mode of arrival: Ambulatory Limitations: No Limitations - History of Present Illness Initial comments: pt is a 64-year-old female who presents emergency room complaints of generalized joint pain for a month. She states that she has pain in her left foot, left hip, left shoulder. She denies any acute fall or injury. She states occasionally she feels tingling in her left foot. She states that she was previously seeing a vegetable cutter in [facility] for this complaint but moved to [place] and missed her appointment with her new vegetable cutter which she was was to have last month. She denies any complete numbness, weakness, swelling, fever, nausea, vomiting, diarrhea. She is ambulating without difficulty. She has a past medical history of asthma, diabetes, hypertension. No allergies to m edications. She is not currently using anything for her symptoms. - Related Data Home Medications Medication Instructions Recorded Confirmed Last Taken Aspirin EC [Halfprin EC] 81 mg PO DAILY 04/15/19 04/15/19 Unknown Lovastatin [Altoprev] 40 mg PO QHS 04/15/19 04/15/19 Unknown amLODIPine 5 mg PO DAILY 04/15/19 04/15/19 Unknown atenoloL [Tenormin] 25 mg PO DAILY 04/15/19 04/15/19 Unknown hydroCHLOROthiazide [HCTZ] 25 mg PO DAILY 04/15/19 04/15/19 Unknown metFORMIN [Glucophage] 500 mg PO BID 04/15/19 04/15/19 Unknown Previous Rx's Medication Instructions Recorded Last Taken Type Fluticasone [Flonase] 1 spray NS QDAY #1 bottle 10/18/18 Unknown Rx Docusate Sodium [Colace] 100 mg PO BID #30 capsule 09/05/19 Unknown Rx Potassium Chloride [K-Dur] 10 meq PO QDAY #5 tablet 09/05/19 Unknown Rx Diclofenac Sodium [Voltaren 1 applicatio TP TID #20 gel..gram. 06/02/20 Unknown Rx Arthritis Pain] Meloxicam [Mobic] 7.5 mg PO QDAY #14 tablet 06/02/20 Unknown Rx Allergies Allergy/AdvReac Type Severity Reaction Status Date / Time No Known Allergies Allergy Verified 09/05/19 13:32 ED Review of Systems ROS: Stated complaint: LT SIDE/SHOULDER/FEET PAIN Other details as noted in HPI Comment: All other systems reviewed and negative ED Past Medical Hx - Past Medical History Hx Hypertension: Yes Hx Diabetes: Yes Hx Asthma: Yes Additional medical history: High cholesterol, Arthritis in knees - Surgical History Additional Surgical History: Robin Carpel tunnel surgery, C-sections x 2 - Social History Smoking Status: Never Smoker Substance Use Type: None - Medications Home Medications: Home Medications Medication Instructions Recorded Confirmed Last Taken Type Fluticasone [Flonase] 1 spray NS QDAY #1 bottle 10/18/18 04/15/19 Unknown Rx Aspirin EC [Halfprin EC] 81 mg PO DAILY 04/15/19 04/15/19 Unknown History Lovastatin [Altoprev] 40 mg PO QHS 04/15/19 04/15/19 Unknown History amLODIPine 5 mg PO DAILY 04/15/19 04/15/19 Unknown History atenoloL [Tenormin] 25 mg PO DAILY 04/15/19 04/15/19 Unknown History hydroCHLOROthiazide [HCTZ] 25 mg PO DAILY 04/15/19 04/15/19 Unknown History metFORMIN [Glucophage] 500 mg PO BID 04/15/19 04/15/19 Unknown History Docusate Sodium [Colace] 100 mg PO BID #30 capsule 09/05/19 Unknown Rx Potassium Chloride [K-Dur] 10 meq PO QDAY #5 tablet 09/05/19 Unknown Rx Diclofenac Sodium [Voltaren 1 applicatio TP TID #20 gel..gram. 06/02/20 Unknown Rx Arthritis Pain] Meloxicam [Mobic] 7.5 mg PO QDAY #14 tablet 06/02/20 Unknown Rx ED Physical Exam - General Limitations: No Limitations General appearance: alert, in no apparent distress - Head Head exam: Present: atraumatic, normocephalic - Eye Eye exam: Present: normal appearance - ENT ENT exam: Present: mucous membranes moist - Respiratory Respiratory exam: Present: normal lung sounds bilaterally. Absent: respiratory distress, wheezes, rales, rhonchi, stridor, chest wall tenderness, accessory muscle use, decreased breath sounds, prolonged expiratory - Cardiovascular Cardiovascular Exam: Present: regular rate, normal rhythm, normal heart sounds. Absent: systolic murmur, diastolic murmur, rubs, gallop - Extremities Exam Extremities exam: Present: normal inspection, full ROM, normal capillary refill, other (no bony ttp of the BUE/BLE, FROM of the BLE/BUE, no deformity, no edema, no increased warmth, no erythema, no skin changes, neurovascularly intact). Absent: tenderness, pedal edema, joint swelling, calf tenderness - Neurological Exam Neurological exam: Present: alert, oriented X3 - Psychiatric Psychiatric exam: Present: normal affect, normal mood - Skin Skin exam: Present: warm, dry, intact ED Course Vital Signs 06/02/20 19:10 Temperature 98.8 F Pulse Rate 84 Respiratory 16 Rate Blood Pressure 167/70 O2 Sat by Pulse 97 Oximetry ED Medical Decision Making - Medical Decision Making pt is a 64-year-old female who presents emergency room complaints of generalized joint pain for a month. She states that she has pain in her left foot, left hip, left shoulder. She denies any acute fall or injury. She states occasionally she feels tingling in her left foot. She states that she was previously seeing a vegetable cutter in [facility] for this complaint but moved to [place] and missed her appointment with her new vegetable cutter which she was was to have last month. She denies any complete numbness, weakness, swelling, fever, nausea, vomiting, diarrhea. She is ambulating without difficulty. She has a past medical history of asthma, diabetes, hypertension. No allergies to medications. She is not currently using anything for her symptoms. Vitals are stable. On exam:no bony ttp of the BUE/BLE, FROM of the BLE/BUE, no deformity, no edema, no increased warmth, no erythema, no skin changes, neurovascularly intact. Symptoms likely related to polyarthritis and neuropathy. She has no clinical signs of gout, septic joint, acute arterial occlusion, DVT, she has had no acute trauma. Discussed the importance of follow-up with primary care doctor and her vegetable cutter. Patient given prescription for Mobic and Voltaren gel. Advised patient Please use medication as prescribed. Follow-up with your primary care doctor. Follow-up with your vegetable cutter. Return to emergency room for new or worsening symptoms. Critical care attestation.: If time is entered above; I have spent that time in minutes in the direct care of this critically ill patient, excluding procedure time. ED Disposition Clinical Impression: Paresthesia of left foot Joint pain Qualifiers: Joint pain location: unspecified Qualified Code(s): M25.50 - Pain in unspecified joint Disposition: TO HOME OR SELFCARE Is pt being admited?: No Does the pt Need Aspirin: No Condition: Stable Instructions: Neuropathic Pain, Joint Pain Additional Instructions: Please use medication as prescribed. Follow-up with your primary care doctor. Follow-up with your vegetable cutter. Return to emergency room for new or worsening symptoms. Prescriptions: Meloxicam [Mobic] 7.5 mg PO QDAY #14 tablet Diclofenac Sodium [Voltaren Arthritis Pain] 1 applicatio TP TID #20 gel..gram. Referrals: your, primary care doctor [Other] - 2-3 Days your, vegetable cutter [Other] - 2-3 Days Time of Disposition: 20:20 Print Language: DOMINICAN
== END 2020-06-02 21:00 | disposition home or self-care (01) ==
LOC: ED 18:04
DX: M25.512 Pain in left shoulder (principal); M25.572 Pain in left ankle and joints of left foot; M25.552 Pain in left hip; R20.2 Paresthesia of skin; I10 Essential (primary) hypertension; E11.9 Type 2 diabetes mellitus without complications; E78.00 Pure hypercholesterolemia, unspecified; J45.909 Unspecified asthma, uncomplicated; Z79.899 Other long term (current) drug therapy; Z98.890 Other specified postprocedural states
CPT/HCPCS: 99281

== ENCOUNTER 2020-08-02 05:41 | Emergency (ER) | payer MEDICARE ==
[2020-08-02] MEDS ORDERED: METOCLOPRAMIDE 10 MG/2 ML INJ IV ONE (06:16)
[2020-08-02] MEDS ORDERED: MORPHINE 4 MG/1 ML INJ IV ONE (06:16)
--- NOTE | 2020-08-02 06:19 | Emergency Department Report ---
HPI - General Chief Complaint: Headache Time Seen by Provider: 08/02/20 06:04 - HPI HPI: This is a 64-year-old -[place] female who presents to the emergency department via EMS from home with complaint of a frontal headache and sweats that started upon waking this morning. She denies any vision change, slurred speech, numbness or paresthesias, any other neurological deficits, fever, neck pain/stiffness, chest pain or shortness of breath. She has a past medical history that includes [id number] diabetes, hypertension, asthma, high cholesterol and osteoarthritis. She has not taken anything for symptoms prior to presentation today. No recent travel or sick contacts at home. She denies any tobacco or illicit drug use she says that her headache is 8 out of 10 in intensity, but there are no aggravating or alleviating factors. ED Past Medical Hx - Past Medical History Hx Hypertension: Yes Hx Diabetes: Yes Hx Asthma: Yes Additional medical history: High cholesterol, Arthritis in knees - Surgical History Additional Surgical History: Robin Carpel tunnel surgery, C-sections x 2 - Social History Smoking Status: Never Smoker - Medications Home Medications: Home Medications Medication Instructions Recorded Confirmed Last Taken Type Fluticasone [Flonase] 1 spray NS QDAY #1 bottle 10/18/18 04/15/19 Unknown Rx Aspirin EC [Halfprin EC] 81 mg PO DAILY 04/15/19 04/15/19 Unknown History Lovastatin [Altoprev] 40 mg PO QHS 04/15/19 04/15/19 Unknown History amLODIPine 5 mg PO DAILY 04/15/19 04/15/19 Unknown History atenoloL [Tenormin] 25 mg PO DAILY 04/15/19 04/15/19 Unknown History hydroCHLOROthiazide [HCTZ] 25 mg PO DAILY 04/15/19 04/15/19 Unknown History metFORMIN [Glucophage] 500 mg PO BID 04/15/19 04/15/19 Unknown History Docusate Sodium [Colace] 100 mg PO BID #30 capsule 09/05/19 Unknown Rx Potassium Chloride [K-Dur] 10 meq PO QDAY #5 tablet 09/05/19 Unknown Rx Diclofenac Sodium [Voltaren 1 applicatio TP TID #20 gel..gram. 06/02/20 Unknown Rx Arthritis Pain] Meloxicam [Mobic] 7.5 mg PO QDAY #14 tablet 06/02/20 Unknown Rx ED Review of Systems ROS: Stated complaint: HEADACHE Other details as noted in HPI Comment: All other systems reviewed and negative Constitutional: diaphoresis. denies: chills, fever Eyes: denies: eye pain, vision change ENT: denies: ear pain, throat pain Respiratory: denies: cough, shortness of breath Cardiovascular: denies: chest pain, palpitations Gastrointestinal: denies: abdominal pain, vomiting Genitourinary: denies: dysuria, discharge Musculoskeletal: denies: back pain, arthralgia Skin: denies: rash, lesions Neurological: headache. denies: weakness, numbness, paresthesias Physical Exam - Physical Exam Vital Signs: Vital Signs 08/02/20 05:47 Temperature 97.8 F Pulse Rate 78 Respiratory 18 Rate Blood Pressure 152/76 Blood Pressure 152/76 [Right] O2 Sat by Pulse 99 Oximetry Physical Exam: GENERAL: The patient is well-developed well-nourished. HENT: Normocephalic. Atraumatic. Patient has moist mucous membranes. EYES: Extraocular motions are intact. Pupils equal reactive to light bilaterally. There is some fatigable horizontal nystagmus. NECK: Supple. Trachea is midline. CHEST/LUNGS: Clear to auscultation. There is no respiratory distress noted. HEART/CARDIOVASCULAR: Regular. There is no tachycardia. There is no murmur. ABDOMEN: Abdomen is soft, nontender. Patient has normal bowel sounds. There is no abdominal distention. SKIN: Skin is warm and dry. NEURO: The patient is awake, alert, and oriented. The patient is cooperative. The patient has no focal neurologic deficits. Normal speech. Cranial nerves II through XII grossly intact. No pronator drift or dysmetria. MUSCULOSKELETAL: There is no tenderness or deformity. There is no limitation range of motion. ED Course Vital Signs 08/02/20 05:47 Temperature 97.8 F Pulse Rate 78 Respiratory 18 Rate Blood Pressure 152/76 Blood Pressure 152/76 [Right] O2 Sat by Pulse 99 Oximetry ED Medical Decision Making - Lab Data Result diagrams: 08/02/20 06:02 08/02/20 11:35 Lab Results 08/02/20 08/02/20 08/02/20 Range/Units 06:02 06:02 06:04 WBC 9.7 (4.5-11.0) K/mm3 RBC 4.27 (3.65-5.03) M/mm3 Hgb 12.9 (10.1-14.3) gm/dl Hct 37.6 (30.3-42.9) % MCV 88 (79-97) fl MCH 30 (28-32) pg MCHC 34 (30-34) % RDW 15.4 H (13.2-15.2) % Plt Count 234 (140-440) K/mm3 Lymph % (Auto) 28.9 (13.4-35.0) % Haines % (Auto) 6.1 (0.0-7.3) % Eos % (Auto) 2.3 (0.0-4.3) % Baso % (Auto) 0.3 (0.0-1.8) % Lymph # (Auto) 2.8 (1.2-5.4) K/mm3 Haines # (Auto) 0.6 (0.0-0.8) K/mm3 Eos # (Auto) 0.2 (0.0-0.4) K/mm3 Baso # (Auto) 0.0 (0.0-0.1) K/mm3 Seg Neutrophils % 62.4 (40.0-70.0) % Seg Neutrophils # 6.1 (1.8-7.7) K/mm3 Sodium 142 (137-145) mmol/L Potassium 2.8 L* (3.6-5.0) mmol/L Chloride 100.8 (98-107) mmol/L Carbon Dioxide 26 (22-30) mmol/L Anion Gap 18 mmol/L BUN 13 (7-17) mg/dL Creatinine 0.6 (0.6-1.2) mg/dL Estimated GFR > 60 ml/min BUN/Creatinine Ratio 22 % Glucose 183 H (65-100) mg/dL POC Glucose 210 H (70-105) mg/dL Calcium 9.5 (8.4-10.2) mg/dL Total Bilirubin 0.30 (0.1-1.2) mg/dL AST 14 (5-40) units/L ALT 10 (7-56) units/L Alkaline Phosphatase 74 (35-129) units/L Total Protein 7.3 (6.3-8.2) g/dL Albumin 4.3 (3.9-5) g/dL Albumin/Globulin Ratio 1.4 % TSH (0.270-4.200) mlU/mL 08/02/20 08/02/20 Range/Units 06:20 11:35 WBC (4.5-11.0) K/mm3 RBC (3.65-5.03) M/mm3 Hgb (10.1-14.3) gm/dl Hct (30.3-42.9) % MCV (79-97) fl MCH (28-32) pg MCHC (30-34) % RDW (13.2-15.2) % Plt Count (140-440) K/mm3 Lymph % (Auto) (13.4-35.0) % Haines % (Auto) (0.0-7.3) % Eos % (Auto) (0.0-4.3) % Baso % (Auto) (0.0-1.8) % Lymph # (Auto) (1.2-5.4) K/mm3 Haines # (Auto) (0.0-0.8) K/mm3 Eos # (Auto) (0.0-0.4) K/mm3 Baso # (Auto) (0.0-0.1) K/mm3 Seg Neutrophils % (40.0-70.0) % Seg Neutrophils # (1.8-7.7) K/mm3 Sodium (137-145) mmol/L Potassium 3.9 D (3.6-5.0) mmol/L Chloride (98-107) mmol/L Carbon Dioxide (22-30) mmol/L Anion Gap mmol/L BUN (7-17) mg/dL Creatinine (0.6-1.2) mg/dL Estimated GFR ml/min BUN/Creatinine Ratio % Glucose (65-100) mg/dL POC Glucose (70-105) mg/dL Calcium (8.4-10.2) mg/dL Total Bilirubin (0.1-1.2) mg/dL AST (5-40) units/L ALT (7-56) units/L Alkaline Phosphatase (35-129) units/L Total Protein (6.3-8.2) g/dL Albumin (3.9-5) g/dL Albumin/Globulin Ratio % TSH 2.040 (0.270-4.200) mlU/mL - Radiology Data Radiology results: report reviewed CT head/brain wo con INDICATION: headache. TECHNIQUE: Routine CT head without contrast. All CT scans at this location are performed using CT dose reduction for ALARA by means of automated exposure control. COMPARISON: None. FINDINGS: BRAIN / INTRACRANIAL CONTENTS: No acute hemorrhage, mass effect, midline shift, or hydrocephalus. No appreciable acute large territorial or lacunar infarct. No chronic infarct or focal atrophy. Normal brain volume and ventricular/sulcal size for age. No extra axial blood or fluid collection. ORBITS: No significant abnormality of visualized orbits. SINUSES / MASTOIDS: No significant abnormality of visualized sinuses and mastoid air cells. ADDITIONAL FINDINGS: None. IMPRESSION: 1. No acute intracranial abnormality. - Medical Decision Making This patient presents to the emergency department with a complaint of a right- sided frontal headache since this morning. On examination she does not have any focal, motor or sensory deficits and her cranial nerves are intact. She has a NIH stroke scale of zero. CT scan of the head without contrast did not show any hemorrhage, large vessel occlusion, hydrocephalus, mass, or any other acute processes. The patient's labs have been mostly unremarkable including CBC, the majority of her metabolic panel, and she has a normal thyroid function. The patient was found to have hypokalemia with a potassium of 2.8. She was given both oral and IV potassium and a repeat potassium level came back within normal range at 3.9. I believe that the hypokalemia could be secondary to the patient's use of HCTZ for her blood pressure. The patient was given a dose of IV analgesia for her headache. She was reassessed multiple times over multiple hours and the headache has greatly improved down to a 1 out of 10. She was seen ambulatory in the emergency department and both appears and feels stable. Her vital signs have been reassuring that her ED course including being afebrile. For all these reason she appears safe for discharge home at this time. She has been instructed to follow-up with her primary care physician and will return to the emergency department with any worsening of her symptoms or with any acute distress. Critical Care Time: No Critical care attestation.: If time is entered above; I have spent that time in minutes in the direct care of this critically ill patient, excluding procedure time. ED Disposition Clinical Impression: Hypokalemia Headache Qualifiers: Headache type: unspecified Headache chronicity pattern: unspecified pattern Intractability: not intractable Qualified Code(s): R51.9 - Headache, unspecified Disposition: DC-01 TO HOME OR SELFCARE Is pt being admited?: No Condition: Stable Instructions: General Headache Without Cause, Hypokalemia, Potassium Content of Foods Additional Instructions: Please follow-up with your primary care physician in the next few days. Return to the emergency department with any worsening of your symptoms, new or concerning symptoms not addressed during this current emergency department visit, or with any acute distress. Referrals: PRIMARY CARE, [Primary Care Provider] - 2-3 Days Time of Disposition: 12:16 - Assessment Assessment Interval: Baseline - Level of Consciousness 1a. Level of Consciousness: alert/keenly responsive - LOC Questions 1b. LOC Questions: answers both correctly - LOC Command 1c. LOC Commands: performs tasks correctly - Best Gaze 2. Best Gaze: normal - Visual 3. Visual: no visual loss - Facial Palsy 4. Facial Palsy: normal symmetrical movement - Motor Arm 5a. Motor Arm Left: no drift 5b. Motor Arm Right: no drift - Motor Leg 6a. Motor Leg Left: no drift 6b. Motor Leg Right: no drift - Limb Ataxia 7. Limb Ataxia: absent - Sensory 8. Sensory: normal - Best Language 9. Best Language: no aphasia - Dysarthria 10. Dysarthria: normal - Extinction and Inattention 11. Extinction/Inattention: no abnormality - Scoring Total Score: 0 Stroke Severity: No Stroke Symptoms
[2020-08-02 06:51] LABS: Basophils % (Auto) 0.3 % (0.0-1.8); Eosinophils # (Auto) 0.2 K/mm3 (0.0-0.4); Eosinophils % (Auto) 2.3 % (0.0-4.3); Hematocrit 37.6 % (30.3-42.9); Hemoglobin 12.9 gm/dl (10.1-14.3); Lymphocytes # (Auto) 2.8 K/mm3 (1.2-5.4); Lymphocytes % (Auto) 28.9 % (13.4-35.0); Mean Corpuscular HGB Conc 34 % (30-34); Mean Corpuscular Volume 88 fl (79-97); Monocytes # (Auto) 0.6 K/mm3 (0.0-0.8); Monocytes % (Auto) 6.1 % (0.0-7.3); Platelet Count 234 K/mm3 (140-440); Red Blood Count 4.27 M/mm3 (3.65-5.03); Red Cell Distribution Width 15.4 % (13.2-15.2)
[2020-08-02 07:06] LABS: Alanine Aminotransferase 10 units/L (7-56); Albumin 4.3 g/dL (3.9-5); Blood Urea Nitrogen 13 mg/dL (7-17); Calcium 9.5 mg/dL (8.4-10.2); Hemolysis Index 0
[2020-08-02 07:08] LABS: BUN/Creatinine Ratio 22
[2020-08-02] MEDS ORDERED: POTASSIUM CHLORIDE ER 20 MEQ TAB PO ONE (07:09)
[2020-08-02] MEDS ORDERED: SODIUM CHLORIDE 0.9% 1000 ML 1,000 ML ONE (08:07)
[2020-08-02] MEDS ORDERED: SODIUM CHLORIDE 0.9% 1000 ML 1,000 ML IV ONE (08:08)
[2020-08-02] MEDS: POTASSIUM CHLORIDE 10 MEQ 10 MEQ/100 ML BAG IV SCH ×2 (08:13→09:49)
--- NOTE | 2020-08-02 08:27 | Cat Scan Report ---
CT head/brain wo con INDICATION: headache. TECHNIQUE: Routine CT head without contrast. All CT scans at this location are performed using CT dos e reduction for ALARA by means of automated exposure control. COMPARISON: None. FINDINGS: BRAIN / INTRACRANIAL CONTENTS: No acute hemorrhage, mass effect, midline shift, or hydrocephalus. No appreciable acute large territorial or lacunar infarct. No chronic infarct or focal atrophy. Normal b rain volume and ventricular/sulcal size for age. No extra axial blood or fluid collection. ORBITS: No significant abnormality of visualized orbits. SINUSES / MASTOIDS: No significant abnormality of visualized sinuses and mastoid air cells. ADDITIONAL FINDINGS: None. IMPRESSION: 1. No acute intracranial abnormality. Signer Name: Damaso Martini MD Signed: 08/02/2020 8:23 AM Workstation Name: [id number]
[2020-08-02 13:04] VITALS: BP 143/67
== END 2020-08-02 13:05 | disposition home or self-care (01) ==
LOC: ED 05:41
DX: E87.6 Hypokalemia (principal); R51.9 Headache, unspecified; I10 Essential (primary) hypertension; E11.9 Type 2 diabetes mellitus without complications; J45.909 Unspecified asthma, uncomplicated; E78.00 Pure hypercholesterolemia, unspecified; Z79.899 Other long term (current) drug therapy; Z98.890 Other specified postprocedural states
CPT/HCPCS: 36415; 70450; 80053; 82962; 84132; 84443; 85025; 96365; 96367; 96375; 99284; J2270; J2765; J3480; J7030; 96361; 96374

== ENCOUNTER 2020-08-13 18:52 | Emergency (ER) | payer MEDICARE ==
[2020-08-13] MEDS ORDERED: TETANUS,DIPH,PERTUSS(ACELL) VACCINE 0.5 ML SYRINGE IM ONE (19:02)
--- NOTE | 2020-08-13 19:03 | Emergency Department Report ---
- General Stated complaint: STEP ON NAIL Time Seen by Provider: 08/13/20 19:01 Source: patient Mode of arrival: Ambulatory Limitations: No Limitations - History of Present Illness Initial comments: 64 yo AA comes to ER p sustaining a puncture wound with an old nail to her left heel 2 days ago. She has nail and tip is intact. She has DM and is co for infection. She also needs tdap updated. No s/s of infection on exam Pt ambulatory and in nad. -: Sudden Tetanus Up to Date: no Severity: mild Consistency: constant Improves with: none Worsens with: none Context: none Associated symptoms: denies other symptoms Treatments Prior to Arrival: bandages, OTC topical medication - Related Data Home Medications Medication Instructions Recorded Confirmed Last Taken Aspirin EC [Halfprin EC] 81 mg PO DAILY 04/15/19 04/15/19 Unknown Lovastatin [Altoprev] 40 mg PO QHS 04/15/19 04/15/19 Unknown amLODIPine 5 mg PO DAILY 04/15/19 04/15/19 Unknown atenoloL [Tenormin] 25 mg PO DAILY 04/15/19 04/15/19 Unknown hydroCHLOROthiazide [HCTZ] 25 mg PO DAILY 04/15/19 04/15/19 Unknown metFORMIN [Glucophage] 500 mg PO BID 04/15/19 04/15/19 Unknown Previous Rx's Medication Instructions Recorded Last Taken Type Fluticasone [Flonase] 1 spray NS QDAY #1 bottle 10/18/18 Unknown Rx Docusate Sodium [Colace] 100 mg PO BID #30 capsule 09/05/19 Unknown Rx Potassium Chloride [K-Dur] 10 meq PO QDAY #5 tablet 09/05/19 Unknown Rx Diclofenac Sodium [Voltaren 1 applicatio TP TID #20 gel..gram. 06/02/20 Unknown Rx Arthritis Pain] Meloxicam [Mobic] 7.5 mg PO QDAY #14 tablet 06/02/20 Unknown Rx cephALEXin [Keflex] 500 mg PO Q12HR #20 cap 08/13/20 Unknown Rx Allergies Allergy/AdvReac Type Severity Reaction Status Date / Time No Known Allergies Allergy Verified 08/02/20 08:55 Abscess Boil HPI - HPI Stated Complaint: STEP ON NAIL Time Seen by Provider: 08/13/20 19:01 Home Medications: Home Medications Medication Instructions Recorded Confirmed Last Taken Aspirin EC [Halfprin EC] 81 mg PO DAILY 04/15/19 04/15/19 Unknown Lovastatin [Altoprev] 40 mg PO QHS 04/15/19 04/15/19 Unknown amLODIPine 5 mg PO DAILY 04/15/19 04/15/19 Unknown atenoloL [Tenormin] 25 mg PO DAILY 04/15/19 04/15/19 Unknown hydroCHLOROthiazide [HCTZ] 25 mg PO DAILY 04/15/19 04/15/19 Unknown metFORMIN [Glucophage] 500 mg PO BID 04/15/19 04/15/19 Unknown Previous Rx's Medication Instructions Recorded Last Taken Type Fluticasone [Flonase] 1 spray NS QDAY #1 bottle 10/18/18 Unknown Rx Docusate Sodium [Colace] 100 mg PO BID #30 capsule 09/05/19 Unknown Rx Potassium Chloride [K-Dur] 10 meq PO QDAY #5 tablet 09/05/19 Unknown Rx Diclofenac Sodium [Voltaren 1 applicatio TP TID #20 gel..gram. 06/02/20 Unknown Rx Arthritis Pain] Meloxicam [Mobic] 7.5 mg PO QDAY #14 tablet 06/02/20 Unknown Rx cephALEXin [Keflex] 500 mg PO Q12HR #20 cap 08/13/20 Unknown Rx Allergies/Adverse Reactions: Allergies Allergy/AdvReac Type Severity Reaction Status Date / Time No Known Allergies Allergy Verified 08/02/20 08:55 ED Review of Systems ROS: Stated complaint: STEP ON NAIL Other details as noted in HPI Comment: All other systems reviewed and negative ED Past Medical Hx - Past Medical History Previous Medical History?: Yes Hx Hypertension: Yes Hx Diabetes: Yes Hx Asthma: Yes Additional medical history: High cholesterol, Arthritis in knees - Surgical History Past Surgical History?: Yes Additional Surgical History: Robin Carpel tunnel surgery, C-sections x 2 - Family History Family history: no significant - Social History Smoking Status: Never Smoker Substance Use Type: None - Medications Home Medications: Home Medications Medication Instructions Recorded Confirmed Last Taken Type Fluticasone [Flonase] 1 spray NS QDAY #1 bottle 10/18/18 04/15/19 Unknown Rx Aspirin EC [Halfprin EC] 81 mg PO DAILY 04/15/19 04/15/19 Unknown History Lovastatin [Altoprev] 40 mg PO QHS 04/15/19 04/15/19 Unknown History amLODIPine 5 mg PO DAILY 04/15/19 04/15/19 Unknown History atenoloL [Tenormin] 25 mg PO DAILY 04/15/19 04/15/19 Unknown History hydroCHLOROthiazide [HCTZ] 25 mg PO DAILY 04/15/19 04/15/19 Unknown History metFORMIN [Glucophage] 500 mg PO BID 04/15/19 04/15/19 Unknown History Docusate Sodium [Colace] 100 mg PO BID #30 capsule 09/05/19 Unknown Rx Potassium Chloride [K-Dur] 10 meq PO QDAY #5 tablet 09/05/19 Unknown Rx Diclofenac Sodium [Voltaren 1 applicatio TP TID #20 gel..gram. 06/02/20 Unknown Rx Arthritis Pain] Meloxicam [Mobic] 7.5 mg PO QDAY #14 tablet 06/02/20 Unknown Rx cephALEXin [Keflex] 500 mg PO Q12HR #20 cap 08/13/20 Unknown Rx ED Physical Exam - General General appearance: alert, in no apparent distress - Head Head exam: Present: atraumatic, normocephalic - Eye Eye exam: Present: normal appearance - ENT ENT exam: Present: mucous membranes moist - Neck Neck exam: Present: normal inspection - Respiratory Respiratory exam: Present: normal lung sounds bilaterally. Absent: respiratory distress - Cardiovascular Cardiovascular Exam: Present: regular rate, normal rhythm. Absent: systolic murmur, diastolic murmur, rubs, gallop - GI/Abdominal GI/Abdominal exam: Present: soft, normal bowel sounds - Extremities Exam Extremities exam: Present: normal inspection - Back Exam Back exam: Present: normal inspection - Neurological Exam Neurological exam: Present: alert, oriented X3 - Psychiatric Psychiatric exam: Present: normal affect, normal mood - Skin Skin exam: Present: warm, dry, intact, normal color. Absent: rash ED Course Vital Signs 08/13/20 19:37 Temperature 97.8 F Pulse Rate 74 Respiratory 16 Rate Blood Pressure 159/68 O2 Sat by Pulse 99 Oximetry ED Medical Decision Making - Medical Decision Making needs tdap given dm will treat for infection prophylaxis Pt has cleaned the wound no drainage or redness Pt dc home with dc plan of care. She verbalizes understanding of plan and will monitor for s/s of infection. She will follow up with pcp as instructed. Vital Signs 08/13/20 19:37 Temperature 97.8 F Pulse Rate 74 Respiratory 16 Rate Blood Pressure 159/68 O2 Sat by Pulse 99 Oximetry - Differential Diagnosis puncture wound to foot- dm Critical care attestation.: If time is entered above; I have spent that time in minutes in the direct care of this critically ill patient, excluding procedure time. ED Disposition Clinical Impression: Puncture wound Disposition: DC-01 TO HOME OR SELFCARE Is pt being admited?: No Does the pt Need Aspirin: No Condition: Stable Additional Instructions: med as ordered today tdap given Prescriptions: cephALEXin [Keflex] 500 mg PO Q12HR #20 cap Referrals: CHEYANNE IBARRA MD [Staff Physician] - 3-5 Days Time of Disposition: 19:02
[2020-08-13 19:40] VITALS: BP 159/68
== END 2020-08-13 19:40 | disposition home or self-care (01) ==
LOC: ED 18:52
DX: S91.332A Puncture wound without foreign body, left foot, initial encounter (principal); I10 Essential (primary) hypertension; E11.9 Type 2 diabetes mellitus without complications; J45.909 Unspecified asthma, uncomplicated; Z98.890 Other specified postprocedural states; Z79.84 Long term (current) use of oral hypoglycemic drugs; Z79.899 Other long term (current) drug therapy; W22.8XXA Striking against or struck by other objects, initial encounter; Y93.89 Activity, other specified; Y92.89 Other specified places as the place of occurrence of the external cause; Y99.8 Other external cause status
CPT/HCPCS: 90471; 90715; 99282

== ENCOUNTER 2020-10-23 20:17 | Observation (INO) | payer MEDICARE ==
[2020-10-23] MEDS ORDERED: ASPIRIN 81 MG TAB CHEW PO ONE (22:41)
--- NOTE | 2020-10-23 22:45 | Event Note ---
ED Screening Note Date of service: 10/23/20 Time: 22:43 ED Screening Note: 64-year-old female patient with history of hypokalemia, hyperlipidemia, hypertension, BMI > 30, and diabetes presents to the emergency department with complaints of lightheadedness and left arm/shoulder discomfort starting this morning. Patient states the lightheadedness lasted several hours. The discomfort in her left arm/shoulder has been constant, no exacerbating or relieving factors identified. No preceding fall, trauma, or injury. Hypertensive in triage. General: Awake, appropriately interactive, no acute distress. Neck: Supple. Full range of motion intact. Cardiovascular: Normal peripheral perfusion. Pulmonary: No respiratory distress. Patient is speaking normally without use of accessory muscles. Skin: No apparent rashes or lesions. Neurological: No facial asymmetry. Speech is clear. Follows commands. Patient is alert and oriented. Musculoskeletal: Moves all four extremities spontaneously with normal range of motion. Psych: Cooperative. Appropriate mood and affect. Cardiac work-up initiated. community development aide requested. Aspirin ordered. I have greeted and performed a focused rapid initial assessment of this patient. A comprehensive ED assessment and evaluation of the patient, analysis of all test results, and completion of the medical decision-making process will be conducted by additional ED providers. This initial assessment/diagnostic orders/clinical plan/treatment(s) is/are subject to change based on patients health status, clinical progression and re-assessment. Further treatment and workup at subsequent clinical provider's discretion. Patient/guardian urged not to elope from the ED as their condition may be serious if not clinically assessed and managed.
[2020-10-23] MEDS ORDERED: NITROGLYCERIN 2% OINT 1 GM TP ONE (22:58)
[2020-10-23] MEDS ORDERED: oxyCODONE /ACETAMINOPHEN 5-325MG TAB PO PRN (23:17)
[2020-10-23] MEDS ORDERED: METOCLOPRAMIDE 10 MG/2 ML INJ IV PRN (23:17)
[2020-10-23] MEDS ORDERED: NALOXONE 0.4 MG/1 ML INJ IV PRN (23:17)
[2020-10-23] MEDS ORDERED: SENNOSIDES 8.6 MG TAB PO PRN (23:17)
[2020-10-23] MEDS ORDERED: traMADol 50 MG TAB PO PRN (23:17)
[2020-10-23] MEDS ORDERED: ACETAMINOPHEN 325 MG TAB PO PRN ×2 (23:17)
[2020-10-23] MEDS ORDERED: MAGNESIUM HYDROXIDE (MOM) ORAL LIQD UDC PO PRN (23:17)
[2020-10-23] MEDS ORDERED: MORPHINE 2 MG/1 ML INJ IV PRN (23:17)
[2020-10-23] MEDS ORDERED: ALUM-MAG HYDROXIDE-SIMETHICONE 200-200-20MG/5ML ORAL LIQD 30 ML PO PRN (23:17)
[2020-10-23] MEDS ORDERED: ONDANSETRON 4 MG/2 ML INJ IV PRN (23:17)
--- NOTE | 2020-10-23 23:20 | Emergency Department Report ---
HPI - General Chief Complaint: Dizziness Time Seen by Provider: 10/23/20 22:42 - HPI HPI: Waiting room/triage The patient is a 64-year-old female present with a chief complaint of lightheadedness and left shoulder pain. The patient states this morning she noticed lightheadedness with walking. Patient states later today she developed pain in her left shoulder that was sharp and constant in nature. Patient states that the pain is unrelated to movement. Patient denies shortness of breath, nausea/vomiting or diaphoresis with her pain. Patient currently gives her pain a score of 7/10. Patient denies history of fever or cough. Patient received both of her Pfizer [employer] vaccines with her second dose being given 07/09/2020. Patient states her last stress test was approximately 5 years ago but she is never had a cardiac catheterization ED Past Medical Hx - Past Medical History Previous Medical History?: Yes Hx Hypertension: Yes Hx Diabetes: Yes Hx Asthma: Yes Additional medical history: High cholesterol, Arthritis in knees - Surgical History Past Surgical History?: Yes Additional Surgical History: Robin Carpel tunnel surgery, C-sections x 2 - Family History Family history: no significant - Social History Smoking Status: Never Smoker Substance Use Type: None (Denies illicit drug use) - Medications Home Medications: Home Medications Medication Instructions Recorded Confirmed Last Taken Type Fluticasone [Flonase] 1 spray NS QDAY #1 bottle 10/18/18 04/15/19 Unknown Rx Aspirin EC [Halfprin EC] 81 mg PO DAILY 04/15/19 04/15/19 Unknown History Lovastatin [Altoprev] 40 mg PO QHS 04/15/19 04/15/19 Unknown History amLODIPine 5 mg PO DAILY 04/15/19 04/15/19 Unknown History atenoloL [Tenormin] 25 mg PO DAILY 04/15/19 04/15/19 Unknown History hydroCHLOROthiazide [HCTZ] 25 mg PO DAILY 04/15/19 04/15/19 Unknown History metFORMIN [Glucophage] 500 mg PO BID 04/15/19 04/15/19 Unknown History Docusate Sodium [Colace] 100 mg PO BID #30 capsule 09/05/19 Unknown Rx Potassium Chloride [K-Dur] 10 meq PO QDAY #5 tablet 09/05/19 Unknown Rx Diclofenac Sodium [Voltaren 1 applicatio TP TID #20 gel..gram. 06/02/20 Unknown Rx Arthritis Pain] Meloxicam [Mobic] 7.5 mg PO QDAY #14 tablet 06/02/20 Unknown Rx cephALEXin [Keflex] 500 mg PO Q12HR #20 cap 08/13/20 Unknown Rx ED Review of Systems ROS: Stated complaint: ARM PAIN/POTASSIUM Other details as noted in HPI Constitutional: denies: diaphoresis, fever Eyes: denies: eye pain ENT: denies: throat pain Respiratory: denies: shortness of breath Cardiovascular: chest pain Endocrine: no symptoms reported Gastrointestinal: denies: nausea, vomiting Genitourinary: denies: dysuria Musculoskeletal: denies: back pain Neurological: denies: headache Physical Exam - Physical Exam Vital Signs: Vital Signs 10/23/20 20:51 Temperature 98.3 F Pulse Rate 83 Respiratory 18 Rate Blood Pressure 176/85 [Right] O2 Sat by Pulse 97 Oximetry Physical Exam: GENERAL: The patient is well-developed well-nourished female sitting in chair not appearing to be in acute distress. [] HEENT: Normocephalic. Atraumatic. Extraocular motions are intact. Patient has moist mucous membranes. NECK: Supple. Trachea midline CHEST/LUNGS: Clear to auscultation. There is no respiratory distress noted. HEART/CARDIOVASCULAR: Regular. There is no tachycardia. There is no gallop rub or murmur. ABDOMEN: Abdomen is soft, nontender. Patient has normal bowel sounds. There is no abdominal distention. SKIN: There is no rash. There is no edema. There is no diaphoresis. NEURO: The patient is awake, alert, and oriented. The patient is cooperative. The patient has no focal neurologic deficits. The patient has normal speech and gait. GCS 15 MUSCULOSKELETAL: There is no evidence of acute injury. ED Course Vital Signs 10/23/20 20:51 Temperature 98.3 F Pulse Rate 83 Respiratory 18 Rate Blood Pressure 176/85 [Right] O2 Sat by Pulse 97 Oximetry ED Medical Decision Making - Lab Data Result diagrams: 10/23/20 23:25 10/23/20 23:25 Laboratory Tests 10/23/20 10/23/20 10/23/20 23:25 23:25 23:25 WBC 8.6 RBC 4.51 Hgb 13.5 Hct 39.9 MCV 89 MCH 30 MCHC 34 RDW 15.6 H Plt Count 276 Lymph % (Auto) 32.7 [place] % (Auto) 6.3 Eos % (Auto) 2.2 Baso % (Auto) 0.7 Lymph # (Auto) 2.8 [place] # (Auto) 0.5 Eos # (Auto) 0.2 Baso # (Auto) 0.1 Seg Neutrophils % 58.1 Seg Neutrophils # 5.0 VBG pH Sodium 142 Potassium 3.5 L Chloride 101.6 Carbon Dioxide 28 Anion Gap 16 BUN 11 Creatinine 0.6 Estimated GFR > 60 BUN/Creatinine Ratio 18 Glucose 118 H Calcium 9.4 Magnesium 2.00 Total Bilirubin 0.30 AST 13 ALT 10 Alkaline Phosphatase 80 Total Creatine Kinase 118 CK-MB (CK-2) 1.5 CK-MB (CK-2) Rel Index 1.2 Troponin T < 0.010 Total Protein 8.1 Albumin 4.3 Albumin/Globulin Ratio 1.1 10/23/20 23:25 WBC RBC Hgb Hct MCV MCH MCHC RDW Plt Count Lymph % (Auto) [place] % (Auto) Eos % (Auto) Baso % (Auto) Lymph # (Auto) [place] # (Auto) Eos # (Auto) Baso # (Auto) Seg Neutrophils % Seg Neutrophils # VBG pH 7.379 Sodium Potassium Chloride Carbon Dioxide Anion Gap BUN Creatinine Estimated GFR BUN/Creatinine Ratio Glucose Calcium Magnesium Total Bilirubin AST ALT Alkaline Phosphatase Total Creatine Kinase CK-MB (CK-2) CK-MB (CK-2) Rel Index Troponin T Total Protein Albumin Albumin/Globulin Ratio - EKG Data -: EKG Interpreted by Me EKG shows normal: sinus rhythm Rate: normal - EKG Data Interpretation: nonspecific ST-T wave nenita (T wave inversion lead V2), other (Left axis deviation) - Radiology Data Radiology results: report reviewed (Chest x-ray), image reviewed (Chest x-ray) interpreted by me: Chest x-ray-no definite focal infiltrates, no pneumothorax [facility] [address] [place] [address] XRay Report Signed Patient: MICHAELA PASCUAL MR#: [id number] [birth year] : 1955 Acct:[id number] Age/Sex: 64 / F ADM Date: 10/23/20 Loc: ED Attending Dr: Ordering Physician: RONNIE LOCK Date of Service: 10/23/20 Procedure(s): XR chest 1V ap Accession Number(s): [id number] cc: RONNIE LOCK Fluoro Time In Minutes: CHEST 1 VIEW INDICATION: dizziness/left arm pain. COMPARISON: 04/15/2019 FINDINGS: Support devices: None. Heart: Normal. Lungs/Pleura: No acute pulmonary or pleural findings. Stable punctate calcified granuloma in the lateral left lower lung. IMPRESSION: 1. No acute findings. Signer Name: Humble Pacheco MD Signed: 10/23/2020 11:37 PM Workstation Name: [id number] Transcribed By: VICKI Dictated By: Humble Pacheco MD Electronically Authenticated By: Humble Pacheco MD Signed Date/Time: 10/23/202336 DD/ 36 TD/TT: Print Cancel - Differential Diagnosis Anginal equivalent, ACS, pericarditis, GERD, dehydration Critical care attestation.: If time is entered above; I have spent that time in minutes in the direct care of this critically ill patient, excluding procedure time. ED Disposition Clinical Impression: Equivalent angina Disposition: ADMITTED INPATIENT Is pt being admited?: Yes Does the pt Need Aspirin: Yes Condition: Fair Instructions: Angina, [id number] Time of Disposition: 00:30 (Hospitalist notified (Dr Amin/Kay)) Heart Score - HEART Score History: Slightly suspicious EKG: Non-specific Age: 45-65 Risk factors: > 3 risk factors or hx of atherosclerotic disease Troponin: < normal limit HEART Score: 4 - EKG Read Time Time EKG Completed: 22:40 EKG Read Time: 22:40
--- NOTE | 2020-10-23 23:27 | History and Physical Report ---
History of Present Illness Date of examination: 10/23/20 Date of admission: 10/23/20 Chief complaint: Chest pain Left shoulder pain History of present illness: This is a 64-year-old female seen in the emergency department at bedside. Patient on room air at the time of assessment. Patient present with a chief complaint of lightheadedness and left shoulder pain. The patient states this morning she noticed lightheadedness with walking. Patient reported history of bilateral shoulder pain and lower back pain that is ongoing. Patient states that [place] is [place] out of state and moved down to [place] about a year ago. Patient said while she was at home, she had seen She goes to for her lower back pain and her arthritis. Patient states later today she developed pain in her left shoulder that was sharp and constant in nature. Patient states that the pain is unrelated to movement. Patient denies shortness of breath, nausea/vomiting or diaphoresis with her pain. Patient currently gives her pain a score of 9/10. Patient denies history of fever or cough. Patient received both of her Pfizer [employer] vaccines with her second dose being given 07/09/2020. Patient states her last stress test was approximately 5 years ago but she is never had a cardiac catheterization. Echocardiogram ordered and junior business analyst consulted. Past History Past Medical History: diabetes, hypertension, hyperlipidemia, other (Low back pain and bilateral shoulder pain) Past Surgical History: No surgical history Social history: lives with family, full code. denies: smoking, alcohol abuse, IV drug use Family history: no significant family history Medications and Allergies Allergies Allergy/AdvReac Type Severity Reaction Status Date / Time No Known Allergies Allergy Verified 08/02/20 08:55 Home Medications Medication Instructions Recorded Confirmed Last Taken Type Fluticasone [Flonase] 1 spray NS QDAY #1 bottle 10/18/18 04/15/19 Unknown Rx Aspirin EC [Halfprin EC] 81 mg PO DAILY 04/15/19 04/15/19 Unknown History Lovastatin [Altoprev] 40 mg PO QHS 04/15/19 04/15/19 Unknown History amLODIPine 5 mg PO DAILY 04/15/19 04/15/19 Unknown History atenoloL [Tenormin] 25 mg PO DAILY 04/15/19 04/15/19 Unknown History hydroCHLOROthiazide [HCTZ] 25 mg PO DAILY 04/15/19 04/15/19 Unknown History metFORMIN [Glucophage] 500 mg PO BID 04/15/19 04/15/19 Unknown History Docusate Sodium [Colace] 100 mg PO BID #30 capsule 09/05/19 Unknown Rx Potassium Chloride [K-Dur] 10 meq PO QDAY #5 tablet 09/05/19 Unknown Rx Diclofenac Sodium [Voltaren 1 applicatio TP TID #20 gel..gram. 06/02/20 Unknown Rx Arthritis Pain] Meloxicam [Mobic] 7.5 mg PO QDAY #14 tablet 06/02/20 Unknown Rx cephALEXin [Keflex] 500 mg PO Q12HR #20 cap 08/13/20 Unknown Rx Active Meds: Active Medications Acetaminophen (Acetaminophen 325 Mg Tab) 650 mg PO Q4H PRN PRN Reason: Pain MILD(1-3)/Fever >100.5/ARMSTRONG Al Hydrox/Mg Hydrox/Simethicone (Alum-Mag Hydroxide-Simethicone [id number]/5ml Oral Liqd 30 Ml) 30 ml PO Q4H PRN PRN Reason: Indigestion Atorvastatin Calcium (Atorvastatin 40 Mg Tab) 40 mg PO QHS [facility] Famotidine (Famotidine 20 Mg/2 Ml Inj) 20 mg IV BID [facility] Magnesium Hydroxide (Magnesium Hydroxide (Mom) Oral Liqd Udc) 30 ml PO Q4H PRN PRN Reason: Constipation Metoclopramide HCl (Metoclopramide 10 Mg/2 Ml Inj) 10 mg IV Q6H PRN PRN Reason: Nausea And Vomiting Morphine Sulfate (Morphine 2 Mg/1 Ml Inj) 2 mg IV Q4H PRN PRN Reason: Pain, Moderate (4-6) Naloxone HCl (Naloxone 0.4 Mg/1 Ml Inj) 0.1 mg IV Q2MIN PRN PRN Reason: Res Rate </= 8 or 02 SAT < 92% Ondansetron HCl (Ondansetron 4 Mg/2 Ml Inj) 4 mg IV Q8H PRN PRN Reason: Nausea And Vomiting Oxycodone/Acetaminophen (Oxycodone /Acetaminophen 5-325mg Tab) 1 tab PO Q6H PRN PRN Reason: Pain, Moderate (4-6) Senna (Sennosides 8.6 Mg Tab) 8.6 mg PO Q12HR PRN PRN Reason: Constipation Sodium Chloride (Sodium Chloride 0.9% 10 Ml Flush Syringe) 10 ml IV BID TRINI Sodium Chloride (Sodium Chloride 0.9% 10 Ml Flush Syringe) 10 ml IV PRN PRN PRN Reason: LINE FLUSH Tramadol HCl (Tramadol 50 Mg Tab) 50 mg PO Q6H PRN PRN Reason: Pain, Moderate (4-6) Review of Systems Constitutional: other (Low back pain bilateral shoulder pain) Ears, nose, mouth and throat: no epistaxis Cardiovascular: chest pain, no shortness of breath Gastrointestinal: no BRBPR, no melena Rectal: no hemorrhoids Musculoskeletal: low back pain, arthritis, other (Bilateral shoulder pain) Integumentary: no rash, no pruritis, no redness Neurological: no head injury Psychiatric: anxiety Hematologic/Lymphatic: no easy bruising, no easy bleeding, no lymphadenopathy, no lymphedema Exam - Constitutional Vitals: Temp Pulse Resp BP Pulse Ox 98.3 F 83 18 176/85 97 10/23/20 20:51 10/23/20 20:51 10/23/20 20:51 10/23/20 20:51 10/23/20 20:51 General appearance: Present: mild distress, well-nourished - EENT Eyes: Present: PERRL ENT: hearing intact, clear oral mucosa - Neck Neck: Present: supple, normal ROM - Respiratory Respiratory effort: normal Respiratory: bilateral: CTA - Cardiovascular Heart Sounds: Present: S1 & S2. Absent: rub, click - Extremities Extremities: pulses symmetrical, No edema Peripheral Pulses: within normal limits - Abdominal General gastrointestinal: Present: soft, non-tender, non-distended, normal bowel sounds Female genitourinary: Present: normal - Integumentary Integumentary: Present: clear, warm, dry - Musculoskeletal Musculoskeletal: strength equal bilaterally, other (Low back pain, bilateral shoulder pain) - Psychiatric Psychiatric: appropriate mood/affect, intact judgment & insight - Neurologic Neurologic: CNII-XII intact, moves all extremities - Allied Health Allied health notes reviewed: nursing HEART Score - HEART Score EKG: Non-specific Age: 45-65 Risk factors: > 3 risk factors or hx of atherosclerotic disease Results - Labs CBC & Chem 7: 10/23/20 23:25 10/23/20 23:25 Assessment and Plan - Patient Problems (1) Chest pain Current Visit: No Status: Acute Plan to address problem: Continue cardioprotective measures Antiplatelet, statin, and BB Chest x-ray reviewed no acute finding Echocardiogram ordered Cardiology consulted (2) Hypokalemia Current Visit: No Status: Acute Plan to address problem: Mild 3.5 in the ED Replace potassium (3) Left shoulder pain Current Visit: No Status: Acute Plan to address problem: X-rays done no acute finding. Patient reported history of bilateral shoulder pain due to arthritis Patient also reports lower back pain. Continue pain management as needed (4) Hypertension Current Visit: No Status: Acute Plan to address problem: Monitor blood pressure Resume home antihypertensive Hydralazine as needed (5) Diabetes Current Visit: No Status: Acute Plan to address problem: Monitor blood sugar with sliding scale protocol Resume home anti-glycemia Check hemoglobin A1c (6) Hyperlipidemia Current Visit: No Status: Acute Plan to address problem: Resume statin (7) DVT prophylaxis Current Visit: No Status: Acute Plan to address problem: Subcutaneous Lovenox
[2020-10-23] MEDS ORDERED: fentaNYL 100 MCG/2 ML INJ IV ONE (23:33)
[2020-10-23] MEDS ORDERED: ONDANSETRON 4 MG/2 ML INJ IV ONE (23:33)
--- NOTE | 2020-10-23 23:42 | XRay Report ---
CHEST 1 VIEW INDICATION: dizziness/left arm pain. COMPARISON: 04/15/2019 FINDINGS: Support devices: None. Heart: Normal. Lungs/Pleura: No acute pulmonary or pleural findings. Stable punctate calcified granuloma in the late ral left lower lung. IMPRESSION: 1. No acute findings. Signer Name: Humble Pacheco MD Signed: 10/23/2020 11:37 PM Workstation Name: [id number]
[2020-10-23 23:58] LABS: Basophils # (Auto) 0.1 K/mm3 (0.0-0.1); Basophils % (Auto) 0.7 % (0.0-1.8); Eosinophils # (Auto) 0.2 K/mm3 (0.0-0.4); Eosinophils % (Auto) 2.2 % (0.0-4.3); Hematocrit 39.9 % (30.3-42.9); Hemoglobin 13.5 gm/dl (10.1-14.3); Lymphocytes # (Auto) 2.8 K/mm3 (1.2-5.4); Lymphocytes % (Auto) 32.7 % (13.4-35.0); Mean Corpuscular HGB Conc 34 % (30-34); Mean Corpuscular Volume 89 fl (79-97); Monocytes # (Auto) 0.5 K/mm3 (0.0-0.8); Monocytes % (Auto) 6.3 % (0.0-7.3); Platelet Count 276 K/mm3 (140-440); Red Blood Count 4.51 M/mm3 (3.65-5.03); Red Cell Distribution Width 15.6 % (13.2-15.2)
[2020-10-24 00:09] LABS: Creatine Kinase MB 1.5 ng/mL (0.0-4.0)
[2020-10-24 00:10] LABS: Alanine Aminotransferase 10 units/L (7-56); Albumin 4.3 g/dL (3.9-5); Blood Urea Nitrogen 11 mg/dL (7-17); Calcium 9.4 mg/dL (8.4-10.2); Hemolysis Index 2
[2020-10-24 00:12] LABS: BUN/Creatinine Ratio 18
[2020-10-24] MEDS ORDERED: GABAPENTIN 300 MG CAP PO PRN (00:19)
[2020-10-24] MEDS ORDERED: ASPIRIN 81 MG TAB CHEW PO ONE (04:15)
[2020-10-24] MEDS ORDERED: NITROGLYCERIN 2% OINT 1 GM TP ONE (04:15)
[2020-10-24] MEDS ORDERED: ONDANSETRON 4 MG/2 ML INJ IV ONE (04:15)
[2020-10-24] MEDS ORDERED: fentaNYL 100 MCG/2 ML INJ IV ONE (04:15)
--- NOTE | 2020-10-24 09:42 | Consultation ---
History of Present Illness Consult date: 10/24/20 Consult reason: chest pain History of present illness: Patient is presenting with symptoms of lightheadedness and left shoulder pain. Left shoulder pain is intermittent and not associated with shoulder motion or exertion. Patient denies chest pain, heaviness, tightness or shortness of breath. Patient denies exertional dyspnea. Patient reports history of neck, shoulder and lower back arthritis and chronic pain. ECG this admission showing no ischemic changes and troponin negative x 1. CXR showing NAP. Patient reports having had a cardiac work-up in [place] 5 years ago showing no abnormalities. Past History Past Medical History: diabetes, hypertension, hyperlipidemia, other (Low back pain and bilateral shoulder pain) Past Surgical History: No surgical history Social history: lives with family, full code. denies: smoking, alcohol abuse, IV drug use Family history: no significant family history Medications and Allergies Allergies Allergy/AdvReac Type Severity Reaction Status Date / Time No Known Allergies Allergy Verified 08/02/20 08:55 Home Medications Medication Instructions Recorded Confirmed Last Taken Type Fluticasone [Flonase] 1 spray NS QDAY #1 bottle 10/18/18 04/15/19 Unknown Rx Aspirin EC [Halfprin EC] 81 mg PO DAILY 04/15/19 04/15/19 Unknown History Lovastatin [Altoprev] 40 mg PO QHS 04/15/19 04/15/19 Unknown History amLODIPine 5 mg PO DAILY 04/15/19 04/15/19 Unknown History atenoloL [Tenormin] 25 mg PO DAILY 04/15/19 04/15/19 Unknown History hydroCHLOROthiazide [HCTZ] 25 mg PO DAILY 04/15/19 04/15/19 Unknown History metFORMIN [Glucophage] 500 mg PO BID 04/15/19 04/15/19 Unknown History Docusate Sodium [Colace] 100 mg PO BID #30 capsule 09/05/19 Unknown Rx Potassium Chloride [K-Dur] 10 meq PO QDAY #5 tablet 09/05/19 Unknown Rx Diclofenac Sodium [Voltaren 1 applicatio TP TID #20 gel..gram. 06/02/20 Unknown Rx Arthritis Pain] Meloxicam [Mobic] 7.5 mg PO QDAY #14 tablet 06/02/20 Unknown Rx cephALEXin [Keflex] 500 mg PO Q12HR #20 cap 08/13/20 Unknown Rx Active Meds: Active Medications Acetaminophen (Acetaminophen 325 Mg Tab) 650 mg PO Q4H PRN PRN Reason: Pain MILD(1-3)/Fever >100.5/ARM[place]ONG Al Hydrox/Mg Hydrox/Simethicone (Alum-Mag Hydroxide-Simethicone [id number]/5ml Oral Liqd 30 Ml) 30 ml PO Q4H PRN PRN Reason: Indigestion Amlodipine Besylate (Amlodipine 5 Mg Tab) 5 mg PO DAILY [facility] Aspirin (Aspirin Ec 81 Mg Tab) 81 mg PO DAILY [facility] Atenolol (Atenolol 25 Mg Tab) 25 mg PO DAILY [facility] Atorvastatin Calcium (Atorvastatin 40 Mg Tab) 40 mg PO QHS TRINI Atorvastatin Calcium (Atorvastatin 10 Mg Tab) 10 mg PO QHS [facility] Enoxaparin Sodium (Enoxaparin 40 Mg/0.4 Ml Inj) 40 mg SUB-Q DAILY [facility]; Protocol Famotidine (Famotidine 20 Mg/2 Ml Inj) 20 mg IV BID [facility] Gabapentin (Gabapentin 300 Mg Cap) 300 mg PO Q8H PRN PRN Reason: Mild Pain unrelieved by APAP Hydrochlorothiazide (Hydrochlorothiazide 25 Mg Tab) 25 mg PO DAILY [facility] Magnesium Hydroxide (Magnesium Hydroxide (Mom) Oral Liqd Udc) 30 ml PO Q4H PRN PRN Reason: Constipation Metformin HCl (Metformin 500 Mg Tab) 500 mg PO BIDDIAB [facility] Metoclopramide HCl (Metoclopramide 10 Mg/2 Ml Inj) 10 mg IV Q6H PRN PRN Reason: Nausea And Vomiting Morphine Sulfate (Morphine 2 Mg/1 Ml Inj) 2 mg IV Q4H PRN PRN Reason: Pain, Moderate (4-6) Naloxone HCl (Naloxone 0.4 Mg/1 Ml Inj) 0.1 mg IV Q2MIN PRN PRN Reason: Res Rate </= 8 or 02 SAT < 92% Ondansetron HCl (Ondansetron 4 Mg/2 Ml Inj) 4 mg IV Q8H PRN PRN Reason: Nausea And Vomiting Oxycodone/Acetaminophen (Oxycodone /Acetaminophen 5-325mg Tab) 1 tab PO Q6H PRN PRN Reason: Pain, Moderate (4-6) Potassium Chloride (Potassium Chloride Er 10 Meq Tab) 10 meq PO QDAY [facility] Senna (Sennosides 8.6 Mg Tab) 8.6 mg PO Q12HR PRN PRN Reason: Constipation Sodium Chloride (Sodium Chloride 0.9% 10 Ml Flush Syringe) 10 ml IV BID TRINI Last Admin: 10/24/20 04:28 Dose: 10 ml Documented by: Sodium Chloride (Sodium Chloride 0.9% 10 Ml Flush Syringe) 10 ml IV PRN PRN PRN Reason: LINE FLUSH Tramadol HCl (Tramadol 50 Mg Tab) 50 mg PO Q6H PRN PRN Reason: Pain, Moderate (4-6) Review of Systems All systems: negative Physical Examination Vital Signs Temp Pulse Resp BP Pulse Ox 98.3 F 83 18 176/85 97 10/23/20 20:51 10/23/20 20:51 10/23/20 20:51 10/23/20 20:51 10/23/20 20:51 General appearance: no acute distress HEENT: Positive: PERRL Neck: Positive: neck supple Cardiac: Positive: Reg Rate and Rhythm, Systolic Murmur Lungs: Positive: Normal Exam Neuro: Positive: Grossly Intact Abdomen: Positive: Soft Extremities: Absent: edema Results 10/23/20 23:25 10/23/20 23:25 Cardiac Enzymes 10/23/20 10/23/20 Range/Units 23:25 23:25 AST 13 (5-40) units/L CK-MB (CK-2) 1.5 (0.0-4.0) ng/mL CBC 10/23/20 Range/Units 23:25 WBC 8.6 (4.5-11.0) K/mm3 RBC 4.51 (3.65-5.03) M/mm3 Hgb 13.5 (10.1-14.3) gm/dl Hct 39.9 (30.3-42.9) % Plt Count 276 (140-440) K/mm3 Lymph # (Auto) 2.8 (1.2-5.4) K/mm3 [place] # (Auto) 0.5 (0.0-0.8) K/mm3 Eos # (Auto) 0.2 (0.0-0.4) K/mm3 Baso # (Auto) 0.1 (0.0-0.1) K/mm3 Comprehensive Metabolic Panel 10/23/20 Range/Units 23:25 Sodium 142 (137-145) mmol/L Potassium 3.5 L (3.6-5.0) mmol/L Chloride 101.6 (98-107) mmol/L Carbon Dioxide 28 (22-30) mmol/L BUN 11 (7-17) mg/dL Creatinine 0.6 (0.6-1.2) mg/dL Glucose 118 H (65-100) mg/dL Calcium 9.4 (8.4-10.2) mg/dL AST 13 (5-40) units/L ALT 10 (7-56) units/L Alkaline Phosphatase 80 (35-129) units/L Total Protein 8.1 (6.3-8.2) g/dL Albumin 4.3 (3.9-5) g/dL EKG interpretations - Telemetry EKG Rhythm: Sinus Rhythm Assessment and Plan Left shoulder pain Atypical shoulder pain, not consistent with angina Troponin negative x 1 CXR NAP ECG showing no ischemic findings Type II DM Essential primary hypertension Hyperlipidemia Recommendations: Continue to trend troponin and if negative x 3, then patient may go home and follow-up with cardiology as outpatient.
[2020-10-24] MEDS ORDERED: atenoloL 25 MG TAB PO SCH (10:00)
[2020-10-24] MEDS ORDERED: ASPIRIN EC 81 MG TAB PO SCH (10:00)
[2020-10-24] MEDS ORDERED: hydroCHLOROthiazide 25 MG TAB PO SCH (10:00)
[2020-10-24] MEDS ORDERED: ENOXAPARIN 40 MG/0.4 ML INJ SUB-Q SCH (10:00)
[2020-10-24] MEDS ORDERED: FAMOTIDINE 20 MG/2 ML INJ IV SCH (10:00)
[2020-10-24] MEDS ORDERED: POTASSIUM CHLORIDE ER 10 MEQ TAB PO SCH (10:00)
[2020-10-24] MEDS ORDERED: amLODIPine 5 MG TAB PO SCH (10:00)
[2020-10-24] MEDS: metFORMIN 500 MG TAB PO SCH ×2 (11:08→17:50)
--- NOTE | 2020-10-24 12:39 | Progress Note ---
Assessment and Plan Assessment and plan: (1) Chest pain Current Visit: No Status: Acute Plan to address problem: Continue cardioprotective measures Antiplatelet, statin, and BB Chest x-ray reviewed no acute finding Echocardiogram ordered Cardiology consulted (2) Hypokalemia Current Visit: No Status: Acute Plan to address problem: Mild 3.5 in the ED Replace potassium (3) Left shoulder pain Current Visit: No Status: Acute Plan to address problem: X-rays done no acute finding. Patient reported history of bilateral shoulder pain due to arthritis Patient also reports lower back pain. Continue pain management as needed (4) Hypertension Current Visit: No Status: Acute Plan to address problem: Monitor blood pressure Resume home antihypertensive Hydralazine as needed (5) Diabetes Current Visit: No Status: Acute Plan to address problem: Monitor blood sugar with sliding scale protocol Resume home anti-glycemia Check hemoglobin A1c (6) Hyperlipidemia Current Visit: No Status: Acute Plan to address problem: Resume statin (7) DVT prophylaxis Current Visit: No Status: Acute Plan to address problem: Subcutaneous Lovenox History Interval history: I have seen and examined the patient at the bedside Patient's chart and medications reviewed No new events reported by the nursing staff Complaints of chest pain Hospitalist Physical - Constitutional Vitals: Temp Pulse Resp BP Pulse Ox 98.2 F 78 18 137/70 98 10/24/20 11:03 10/24/20 11:03 10/24/20 11:03 10/24/20 11:03 10/24/20 11:03 General appearance: Present: no acute distress HEART Score - HEART Score EKG: Non-specific Age: 45-65 Risk factors: > 3 risk factors or hx of atherosclerotic disease Troponin: Troponin T < 0.010 ng/mL (0.00-0.029) 10/23/20 23:25 Troponin: < normal limit Results - Labs CBC & Chem 7: 10/23/20 23:25 10/23/20 23:25 Labs: Laboratory Last Values WBC 8.6 K/mm3 (4.5-11.0) 10/23/20 23:25 RBC 4.51 M/mm3 (3.65-5.03) 10/23/20 23:25 Hgb 13.5 gm/dl (10.1-14.3) 10/23/20 23:25 Hct 39.9 % (30.3-42.9) 10/23/20 23:25 MCV 89 fl (79-97) 10/23/20 23:25 MCH 30 pg (28-32) 10/23/20 23:25 MCHC 34 % (30-34) 10/23/20 23:25 RDW 15.6 % (13.2-15.2) H 10/23/20 23:25 Plt Count 276 K/mm3 (140-440) 10/23/20 23:25 Lymph % (Auto) 32.7 % (13.4-35.0) 10/23/20 23:25 [place] % (Auto) 6.3 % (0.0-7.3) 10/23/20 23:25 Eos % (Auto) 2.2 % (0.0-4.3) 10/23/20 23: Baso % (Auto) 0.7 % (0.0-1.8) 10/23/20 23:25 Lymph # (Auto) 2.8 K/mm3 (1.2-5.4) 10/23/20 23:25 [place] # (Auto) 0.5 K/mm3 (0.0-0.8) 10/23/20 23:25 Eos # (Auto) 0.2 K/mm3 (0.0-0.4) 10/23/20 23:25 Baso # (Auto) 0.1 K/mm3 (0.0-0.1) 10/23/20 23:25 Seg Neutrophils % 58.1 % (40.0-70.0) 10/23/20 23:25 Seg Neutrophils # 5.0 K/mm3 (1.8-7.7) 10/23/20 23:25 VBG pH 7.379 (7.320-7.420) 10/23/20 23:25 Sodium 142 mmol/L (137-145) 10/23/20 23:25 Potassium 3.5 mmol/L (3.6-5.0) L 10/23/20 23:25 Chloride 101.6 mmol/L (98-107) 10/23/20 23:25 Carbon Dioxide 28 mmol/L (22-30) 10/23/20 23:25 Anion Gap 16 mmol/L 10/23/20 23:25 BUN 11 mg/dL (7-17) 10/23/20 23:25 Creatinine 0.6 mg/dL (0.6-1.2) 10/23/20 23:25 Estimated GFR > 60 ml/min 10/23/20 23:25 BUN/Creatinine Ratio 18 % 10/23/20 23:25 Glucose 118 mg/dL (65-100) H 10/23/20 23:25 Hemoglobin A1c 6.3 % (4-6) H 10/23/20 23:25 Calcium 9.4 mg/dL (8.4-10.2) 10/23/20 23:25 Magnesium 2.00 mg/dL (1.7-2.3) 10/23/20 23:25 Total Bilirubin 0.30 mg/dL (0.1-1.2) 10/23/20 23:25 AST 13 units/L (5-40) 10/23/20 23:25 ALT 10 units/L (7-56) 10/23/20 23:25 Alkaline Phosphatase 80 units/L (35-129) 10/23/20 23:25 Total Creatine Kinase 118 units/L (30-135) 10/23/20 23:25 CK-MB (CK-2) 1.5 ng/mL (0.0-4.0) 10/23/20 23:25 CK-MB (CK-2) Rel Index 1.2 (0-4) 10/23/20 23:25 Troponin T < 0.010 ng/mL (0.00-0.029) 10/23/20 23:25 Total Protein 8.1 g/dL (6.3-8.2) 10/23/20 23:25 Albumin 4.3 g/dL (3.9-5) 10/23/20 23:25 Albumin/Globulin Ratio 1.1 % 10/23/20 23:25 Active Medications - Current Medications Current Medications: Generic Name Dose Route Start Last Admin Trade Name Freq PRN Reason Stop Dose Admin Acetaminophen 650 mg 10/23/20 23:17 Acetaminophen 325 Mg Tab PO Q4H PRN Pain MILD(1-3)/Fever >100.5/ARMSTRONG Al Hydrox/Mg Hydrox/Simethicone 30 ml 10/23/20 23:17 Alum-Mag Hydroxide-Simethicone [id number]/5ml Oral Liqd 30 Ml PO Q4H PRN Indigestion Amlodipine Besylate 5 mg 10/24/20 10:00 10/24/20 11:08 Amlodipine 5 Mg Tab PO 5 mg DAILY TRINI Administration Aspirin 81 mg 10/24/20 10:00 10/24/20 11:08 Aspirin Ec 81 Mg Tab PO 81 mg DAILY TRINI Administration Atenolol 25 mg 10/24/20 10:00 10/24/20 11:08 Atenolol 25 Mg Tab PO 25 mg DAILY TRINI Administration Atorvastatin Calcium 40 mg 10/24/20 22:00 Atorvastatin 40 Mg Tab PO QHS TRINI Atorvastatin Calcium 10 mg 10/24/20 22:00 Atorvastatin 10 Mg Tab PO QHS TRINI Enoxaparin Sodium 40 mg 10/24/20 10:00 10/24/20 11:08 Enoxaparin 40 Mg/0.4 Ml Inj SUB-Q 40 mg DAILY [facility] Administration Protocol Famotidine 20 mg 10/24/20 10:00 10/24/20 11:08 Famotidine 20 Mg/2 Ml Inj IV 20 mg BID TRINI Administration Gabapentin 300 mg 10/24/20 00:19 Gabapentin 300 Mg Cap PO Q8H PRN Mild Pain unrelieved by APAP Hydrochlorothiazide 25 mg 10/24/20 10:00 10/24/20 11:08 Hydrochlorothiazide 25 Mg Tab PO 25 mg DAILY TRINI Administration Magnesium Hydroxide 30 ml 10/23/20 23:17 Magnesium Hydroxide (Mom) Oral Liqd Udc PO Q4H PRN Constipation Metformin HCl 500 mg 10/24/20 08:00 10/24/20 11:08 Metformin 500 Mg Tab PO 500 mg BIDDIAB TRINI Administration Metoclopramide HCl 10 mg 10/23/20 23:17 Metoclopramide 10 Mg/2 Ml Inj IV Q6H PRN Nausea And Vomiting Morphine Sulfate 2 mg 10/23/20 23:17 Morphine 2 Mg/1 Ml Inj IV Q4H PRN Pain, Moderate (4-6) Naloxone HCl 0.1 mg 10/23/20 23:17 Naloxone 0.4 Mg/1 Ml Inj IV Q2MIN PRN Res Rate </= 8 or 02 SAT < 92% Ondansetron HCl 4 mg 10/23/20 23:17 Ondansetron 4 Mg/2 Ml Inj IV Q8H PRN Nausea And Vomiting Oxycodone/Acetaminophen 1 tab 10/23/20 23:17 Oxycodone /Acetaminophen 5-325mg Tab PO Q6H PRN Pain, Moderate (4-6) Potassium Chloride 10 meq 10/24/20 10:00 10/24/20 11:08 Potassium Chloride Er 10 Meq Tab PO 10 meq QDAY TRINI Administration Senna 8.6 mg 10/23/20 23:17 Sennosides 8.6 Mg Tab PO Q12HR PRN Constipation Sodium Chloride 10 ml 10/23/20 23:45 10/24/20 11:08 Sodium Chloride 0.9% 10 Ml Flush Syringe IV 10 ml BID TRINI Administration Sodium Chloride 10 ml 10/23/20 23:17 Sodium Chloride 0.9% 10 Ml Flush Syringe IV PRN PRN LINE FLUSH Tramadol HCl 50 mg 10/23/20 23:17 Tramadol 50 Mg Tab PO Q6H PRN Pain, Moderate (4-6)
[2020-10-24 14:25] LABS: Creatine Kinase MB 1.1 ng/mL (0.0-4.0)
[2020-10-24 16:24] VITALS: BP 130/72
--- NOTE | 2020-10-24 18:01 | Discharge Summary ---
Providers - Providers Date of Admission: 10/23/20 23:17 Date of discharge: 10/24/20 Attending physician: MAGAN HARRISON 10/23/20 Consult to Cardiac Rehabilitation [CONS] Routine Reason For Exam: Phase I 10/23/20 23:17 Consult to Cardiology [CONS] Routine Consulting Provider: GRAHAM ARAMBULA Reason For Exam: chest pain [facility] Reason for admission: Chest pain, left shoulder pain Condition: Fair Pertinent studies: X-rays; no acute abnormalities noted Hospital course: Chest pain Left shoulder pain This is a 64-year-old female seen in the emergency department at bedside. Patient on room air at the time of assessment. Patient present with a chief complaint of lightheadedness and left shoulder pain. The patient states this morning she noticed lightheadedness with walking. Patient reported history of bilateral shoulder pain and lower back pain that is ongoing. Patient states that she is [place] out of state and moved down to [place] about a year ago. Patient said while she was at home, she had seen goes to for her lower back pain and her arthritis. Patient states later today she developed pain in her left shoulder that was sharp and constant in nature. Patient states that the pain is unrelated to movement. Patient denies shortness of breath, nausea/vomiting or diaphoresis with her pain. Patient currently gives her pain a score of 9/10. Patient denies history of fever or cough. Patient received both of her Pfizer [employer] vaccines with her second dose being given 07/09/2020. Patient states her last stress test was approximately 5 years ago but she is never had a cardiac catheterization. Echocardiogram ordered and gasoline engine inspector consulted. Discharge diagnosis: --Atypical chest pain Current Visit: No Status: Acute Continue cardioprotective measures Antiplatelet, statin, and BB Chest x-ray reviewed no acute finding Echocardiogram ordered Cardiology consulted -- Hypokalemia Current Visit: No Status: Acute Mild 3.5 in the ED Replace potassium --Left shoulder pain Current Visit: No Status: Acute X-rays done no acute finding. Patient reported history of bilateral shoulder pain due to arthritis Patient also reports lower back pain. Continue pain management as needed -- Hypertension Current Visit: No Status: Acute Monitor blood pressure Resume home antihypertensive Hydralazine as needed -- Diabetes Current Visit: No Status: Acute Monitor blood sugar with sliding scale protocol Resume home anti-glycemia Check hemoglobin A1c --Hyperlipidemia Current Visit: No Status: Acute Low-cholesterol diet Stable at discharge Disposition: 01 HOME / SELF CARE / HOMELESS Final Discharge Diagnosis (Prints w/discharge instructions): Atypical chest pain. Musculoskeletal pain. Left shoulder pain. Hypertension. Diabetes. Hy pokalemia. Dyslipidemia Time spent for discharge: 35 minutes Core Measure Documentation - Palliative Care Palliative Care/ Comfort Measures: Not Applicable - Core Measures Any of the following diagnoses?: none Exam - Constitutional Vitals: Temp Pulse Resp BP Pulse Ox 97.9 F 78 18 130/72 98 10/24/20 15:26 10/24/20 12:48 10/24/20 15:26 10/24/20 15:26 10/24/20 16:48 General appearance: Present: no acute distress, well-nourished - EENT Eyes: Present: PERRL, EOM intact - Neck Neck: Present: supple, normal ROM - Respiratory Respiratory effort: normal Respiratory: bilateral: diminished, negative: rales, rhonchi - Cardiovascular Rhythm: regular Heart Sounds: Present: S1 & S2 - Extremities Extremities: no ischemia, No edema - Abdominal General gastrointestinal: Present: soft, non-tender, non-distended, normal bowel sounds - Integumentary Integumentary: Present: clear, warm - Musculoskeletal Musculoskeletal: strength equal bilaterally - Psychiatric Psychiatric: appropriate mood/affect, cooperative - Neurologic Neurologic: moves all extremities Plan Activity: advance as tolerated Diet: diabetic Additional Instructions: Advised to comply with medications diet and follow-up visits. If you have worsening symptoms contact MD or go to the nearest emergency room. Advised to see gasoline engine inspector per schedule for further evaluation of your atypical chest pain Follow up with: NOÉ SEWELL MD [Primary Care Provider] - 7 Days DENISE LORENZ MD [Staff Physician] - 10 Days Prescriptions: Ibuprofen/Famotidine [Duexis 800-26.6 mg Tablet] 1 each PO TID #20 tablet
--- NOTE | 2020-10-26 14:12 | Electrocardiograph Report ---
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
--- NOTE | 2020-10-26 14:17 | Electrocardiograph Report ---
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
== END 2020-10-24 21:03 | disposition home or self-care (01) ==
LOC: ED 20:17 → 4A 23:17
PROVIDERS: ADMIT Internal Medicine Geriatric Medicine; ATTEND Internal Medicine
DX: R07.89 Other chest pain (principal); M25.512 Pain in left shoulder; I10 Essential (primary) hypertension; E11.9 Type 2 diabetes mellitus without complications; E87.6 Hypokalemia; E78.5 Hyperlipidemia, unspecified; E78.00 Pure hypercholesterolemia, unspecified; M19.90 Unspecified osteoarthritis, unspecified site; Z79.82 Long term (current) use of aspirin; Z79.84 Long term (current) use of oral hypoglycemic drugs; Z79.899 Other long term (current) drug therapy; Z90.710 Acquired absence of both cervix and uterus; Z98.890 Other specified postprocedural states
CPT/HCPCS: 36415; 71045; 80053; 82550; 82553; 82805; 83036; 83735; 84484; 85025; 93005; 93306; 96372; 96374; 96375; 99285; G0378; J1650; J2405; J3010

== ENCOUNTER 2020-12-31 13:24 | Observation (INO) | payer MEDICARE ==
--- NOTE | 2020-12-31 14:19 | Emergency Department Report ---
Chief Complaint: Dyspnea/Respdistress Stated Complaint: SOB Time Seen by Provider: 12/31/20 14:20 - HPI History of Present Illness: Patient presents with a 2-day history of exertional dyspnea. There is no orthopnea. She does have a history of asthma and has inhalers. She states that those have not helped. She never had symptoms like this before that did not respond to her inhalers. There has been no pain or swelling in the feet. She has no chest pain. There is no trauma. There is no travel. - ROS Review of Systems: No chest pain. No fever. - Exam Vital Signs: Vital Signs 12/31/20 13:43 Temperature 98.7 F Pulse Rate 83 Respiratory 20 Rate Blood Pressure 175/82 O2 Sat by Pulse 98 Oximetry Physical Exam: Patient is in no respiratory distress. Heart is regular rate and rhythm. Lungs are clear. MSE screening note: Focused history and physical exam performed. Due to findings the following was ordered: Labs, x-ray, EKG ED Disposition for MSE Condition: Stable
[2020-12-31] MEDS ORDERED: IPRATROPIUM/ALBUTEROL SULFATE 3 ML AMPUL.NEB IH ONE (14:23)
--- NOTE | 2020-12-31 14:50 | Emergency Department Report ---
ED Shortness of Breath HPI - General Chief Complaint: Dyspnea/Respdistress Stated Complaint: SOB Time Seen by Provider: 12/31/20 14:20 Source: patient Mode of arrival: Ambulatory Limitations: No Limitations - History of Present Illness Initial Comments: Patient is a 65-year-old F [place] female with past medical history of hypertension diabetes and asthma who is presenting with shortness of breath for the past week. Patient states that while sitting still she is not short of breath. She states is mostly with exertion. Patient states that there is no chest pain. States there is no pleuritic component to any of her symptoms. She denies cough cold congestion fevers or chills. States this is not similar to her asthmatic attacks. - Related Data Home Medications Medication Instructions Recorded Confirmed Last Taken Aspirin EC [Halfprin EC] 81 mg PO DAILY 04/15/19 10/24/20 10/23/20 Lovastatin [Altoprev] 40 mg PO QHS 04/15/19 10/24/20 10/23/20 amLODIPine 5 mg PO DAILY 04/15/19 10/24/20 10/23/20 atenoloL [Tenormin] 25 mg PO DAILY 04/15/19 10/24/20 10/23/20 hydroCHLOROthiazide [HCTZ] 25 mg PO DAILY 04/15/19 10/24/20 10/23/20 metFORMIN [Glucophage] 500 mg PO BID 04/15/19 10/24/20 10/23/20 Previous Rx's Medication Instructions Recorded Last Taken Type Fluticasone [Flonase] 1 spray NS QDAY #1 bottle 10/18/18 10/23/20 Rx Docusate Sodium [Colace CAP] 100 mg PO BID #30 capsule 09/05/19 10/23/20 Rx Potassium Chloride [K-Dur] 10 meq PO QDAY #5 tablet 09/05/19 10/23/20 Rx Meloxicam [Mobic] 7.5 mg PO QDAY #14 tablet 06/02/20 10/14/20 Rx Ibuprofen/Famotidine [Duexis 1 each PO TID #20 tablet 10/24/20 Unknown Rx 800-26.6 mg Tablet] Allergies Allergy/AdvReac Type Severity Reaction Status Date / Time No Known Allergies Allergy Verified 08/02/20 08:55 ED Review of Systems ROS: Stated complaint: SOB Other details as noted in HPI Comment: All other systems reviewed and negative ED Past Medical Hx - Past Medical History Previous Medical History?: Yes Hx Hypertension: Yes Hx Diabetes: Yes Hx Asthma: Yes Additional medical history: High cholesterol, Arthritis in knees - Surgical History Past Surgical History?: Yes Additional Surgical History: Robin Carpel tunnel surgery, C-sections x 2 - Social History Smoking Status: Never Smoker Substance Use Type: None (Denies illicit drug use) - Medications Home Medications: Home Medications Medication Instructions Recorded Confirmed Last Taken Type Fluticasone [Flonase] 1 spray NS QDAY #1 bottle 10/18/18 10/24/20 10/23/20 Rx Aspirin EC [Halfprin EC] 81 mg PO DAILY 04/15/19 10/24/20 10/23/20 History Lovastatin [Altoprev] 40 mg PO QHS 04/15/19 10/24/20 10/23/20 History amLODIPine 5 mg PO DAILY 04/15/19 10/24/20 10/23/20 History atenoloL [Tenormin] 25 mg PO DAILY 04/15/19 10/24/20 10/23/20 History hydroCHLOROthiazide [HCTZ] 25 mg PO DAILY 04/15/19 10/24/20 10/23/20 History metFORMIN [Glucophage] 500 mg PO BID 04/15/19 10/24/20 10/23/20 History Docusate Sodium [Colace CAP] 100 mg PO BID #30 capsule 09/05/19 10/24/20 10/23/20 Rx Potassium Chloride [K-Dur] 10 meq PO QDAY #5 tablet 09/05/19 10/24/20 10/23/20 Rx Meloxicam [Mobic] 7.5 mg PO QDAY #14 tablet 06/02/20 10/24/20 10/14/20 Rx Ibuprofen/Famotidine [Duexis 1 each PO TID #20 tablet 10/24/20 Unknown Rx 800-26.6 mg Tablet] ED Physical Exam - General Limitations: No Limitations General appearance: alert, in no apparent distress - Head Head exam: Present: atraumatic, normocephalic - Eye Eye exam: Present: normal appearance - ENT ENT exam: Present: mucous membranes moist - Neck Neck exam: Present: normal inspection - Respiratory Respiratory exam: Present: normal lung sounds bilaterally. Absent: respiratory distress, wheezes, rales, rhonchi, chest wall tenderness - Cardiovascular Cardiovascular Exam: Present: regular rate, normal rhythm, normal heart sounds. Absent: systolic murmur, diastolic murmur, rubs, gallop - GI/Abdominal GI/Abdominal exam: Present: soft, normal bowel sounds. Absent: distended, tenderness, guarding, rebound - Extremities Exam Extremities exam: Present: normal inspection - Back Exam Back exam: Present: normal inspection - Neurological Exam Neurological exam: Present: alert, oriented X3 - Psychiatric Psychiatric exam: Present: normal affect, normal mood - Skin Skin exam: Present: warm, dry, intact, normal color. Absent: rash ED Course Vital Signs 12/31/20 13:43 Temperature 98.7 F Pulse Rate 83 Respiratory 20 Rate Blood Pressure 175/82 O2 Sat by Pulse 98 Oximetry ED Medical Decision Making - Lab Data Result diagrams: 12/31/20 14:33 12/31/20 14:33 Lab Results 12/31/20 12/31/20 12/31/20 Range/Units 14:33 14:33 14:36 WBC 9.2 (4.5-11.0) K/mm3 RBC 4.61 (3.65-5.03) M/mm3 Hgb 13.2 (10.1-14.3) gm/dl Hct 41.1 (30.3-42.9) % MCV 89 (79-97) fl MCH 29 (28-32) pg MCHC 32 (30-34) % RDW 15.4 H (13.2-15.2) % Plt Count 315 (140-440) K/mm3 Sodium 140 (137-145) mmol/L Potassium 3.7 (3.6-5.0) mmol/L Chloride 98.8 (98-107) mmol/L Carbon Dioxide 24 (22-30) mmol/L Anion Gap 21 mmol/L BUN 14 (7-17) mg/dL Creatinine 0.6 (0.6-1.2) mg/dL Estimated GFR > 60 ml/min BUN/Creatinine Ratio 23 % Glucose 141 H (65-100) mg/dL Calcium 9.7 (8.4-10.2) mg/dL Troponin T < 0.010 (0.00-0.029) ng/mL NT-Pro-B Natriuret Pep 19.47 (0-900) pg/mL - EKG Data -: EKG Interpreted by [place] - Radiology Data EKG shows normal sinus rhythm with a rate of 83. [place] normal intervals are normal Q waves in III and aVF. Q waves also present in V1 through V3. No ST segment elevations or depressions. Time interpretation 1431. Ordering Physician: SESAR GALEAS MD Date of Service: 12/31/20 Procedure(s): XR chest routine 2V Accession Number(s): [id number] cc: SESAR GALEAS MD Fluoro Time In Minutes: CHEST 2 VIEWS INDICATION: dyspnea. COMPARISON: 10/23/2020 FINDINGS: Support devices: None. Heart: Within normal limits. Lungs/Pleura: No acute air space or interstitial disease. No significant pleural effusion. IMPRESSION: No acute findings. Signer Name: Claude Woods MD Signed: 12/31/2020 2:44 PM Workstation Name: [id number] Transcribed By: ES Dictated By: Claude Woods MD Electronically Authenticated By: Claude Woods MD Signed Date/Time: 12/31/20 1444 - Medical Decision Making Patient with anginal equivalent. Heart score is elevated. Spoke with cardiology and states that they will see the patient. Patient to be admitted for observation and stress test. Critical Care Time: Yes Critical care attestation.: If time is entered above; I have spent that time in minutes in the direct care of this critically ill patient, excluding procedure time. ED Disposition Clinical Impression: Equivalent angina, Unstable angina Disposition: ADMITTED INPATIENT Is pt being admited?: Yes Does the pt Need Aspirin: No Condition: Stable Instructions: Angina, [id number] Time of Disposition: 17:26 HEART Score - HEART Score History: Highly suspicious EKG: Normal Age: > 65 Risk factors: > 3 risk factors or hx of atherosclerotic disease Troponin: Troponin T < 0.010 ng/mL (0.00-0.029) 12/31/20 14:33 Troponin: < normal limit HEART Score: 6
[2020-12-31 14:54] LABS: Hematocrit 41.1 % (30.3-42.9); Hemoglobin 13.2 gm/dl (10.1-14.3); Mean Corpuscular HGB Conc 32 % (30-34); Mean Corpuscular Volume 89 fl (79-97); Platelet Count 315 K/mm3 (140-440); Red Blood Count 4.61 M/mm3 (3.65-5.03); Red Cell Distribution Width 15.4 % (13.2-15.2)
[2020-12-31 15:10] LABS: Blood Urea Nitrogen 14 mg/dL (7-17); Calcium 9.7 mg/dL (8.4-10.2); Hemolysis Index 8
[2020-12-31 15:14] LABS: BUN/Creatinine Ratio 23
[2020-12-31] MEDS ORDERED: ALBUTEROL 2.5 MG/3 ML NEBU IH PRN (17:14)
[2020-12-31] MEDS ORDERED: oxyCODONE /ACETAMINOPHEN 5-325MG TAB PO PRN (17:14)
[2020-12-31] MEDS ORDERED: ACETAMINOPHEN 325 MG TAB PO PRN (17:14)
[2020-12-31] MEDS ORDERED: HYDROmorphone 1 MG/1 ML INJ IV PRN (17:14)
[2020-12-31] MEDS ORDERED: ONDANSETRON 4 MG/2 ML INJ IV PRN (17:14)
--- NOTE | 2020-12-31 17:18 | History and Physical Report ---
History of Present Illness Chief complaint: It feels funny when I breathe History of present illness: 65 YO Female with Obesity, HTN, HLD, DM, OA, Metabolic Syndrome presents to ED for evaluation. Patient reports "it feels funny when I breathe". Patient states that she has experienced shortness of breath and chest discomfort over the past 1 week with persistent and intermittent symptoms over the same timeframe. Patient knowledges shortness of breath, dyspnea with exertion, chest discomfort. Patient transported to [facility] via private vehicle for further care and evaluation of the aforementioned symptoms. The patient was seen and evaluated in the emergency department. All lab and imaging studies reviewed. Patient found to have clinical symptoms consistent with angina. Patient placed in observation status and admitted to telemetry and initiated on ACS protocol. Patient denies fever, chills, palpitation, productive cough, skin rash, recent ill contacts, or known exposure to COVID-19. Prior admission on 10/23/2020 reviewed. All medication listed at time of admission has been reconciled. Advanced care planning conducted in ED. cardiology team consulted in ED. Past History Past Medical History: arthritis, diabetes, hypertension, hyperlipidemia Past Surgical History: , Other (Bilateral carpal tunnel surgery) Social history: single. denies: smoking, alcohol abuse, prescription drug abuse Family history: diabetes, hypertension Medications and Allergies Allergies Allergy/AdvReac Type Severity Reaction Status Date / Time No Known Allergies Allergy Verified 08/02/20 08:55 Home Medications Medication Instructions Recorded Confirmed Last Taken Type Fluticasone [Flonase] 1 spray NS QDAY #1 bottle 10/18/18 10/24/20 10/23/20 Rx Aspirin EC [Halfprin EC] 81 mg PO DAILY 04/15/19 10/24/20 10/23/20 History Lovastatin [Altoprev] 40 mg PO QHS 04/15/19 10/24/20 10/23/20 History amLODIPine 5 mg PO DAILY 04/15/19 10/24/20 10/23/20 History atenoloL [Tenormin] 25 mg PO DAILY 04/15/19 10/24/20 10/23/20 History hydroCHLOROthiazide [HCTZ] 25 mg PO DAILY 04/15/19 10/24/20 10/23/20 History metFORMIN [Glucophage] 500 mg PO BID 04/15/19 10/24/20 10/23/20 History Docusate Sodium [Colace CAP] 100 mg PO BID #30 capsule 09/05/19 10/24/20 10/23/20 Rx Potassium Chloride [K-Dur] 10 meq PO QDAY #5 tablet 09/05/19 10/24/20 10/23/20 Rx Meloxicam [Mobic] 7.5 mg PO QDAY #14 tablet 06/02/20 10/24/20 10/14/20 Rx Ibuprofen/Famotidine [Duexis 1 each PO TID #20 tablet 10/24/20 Unknown Rx 800-26.6 mg Tablet] Active Meds: Active Medications Acetaminophen (Acetaminophen 325 Mg Tab) 650 mg PO Q4H PRN PRN Reason: Pain MILD(1-3)/Fever >100.5/[facility]ONG Albuterol (Albuterol 2.5 Mg/3 Ml Nebu) 2.5 mg IH Q4HRT PRN PRN Reason: Shortness Of Breath Amlodipine Besylate (Amlodipine 5 Mg Tab) 5 mg PO DAILY [facility] Aspirin (Aspirin Ec 81 Mg Tab) 81 mg PO DAILY [facility] Atenolol (Atenolol 25 Mg Tab) 25 mg PO DAILY [facility] Docusate Sodium (Docusate Sodium 100 Mg Cap) 100 mg PO BID [facility] Famotidine (Famotidine 20 Mg Tab) 20 mg PO BID [facility] Hydrochlorothiazide (Hydrochlorothiazide 25 Mg Tab) 25 mg PO DAILY [facility] Hydromorphone HCl (Hydromorphone 1 Mg/1 Ml Inj) 0.5 mg IV Q23H PRN PRN Reason: Pain , Severe (7-10) Meloxicam (Meloxicam 7.5 Mg Tab) 7.5 mg PO QDAY [facility] Miscellaneous Medication (Lovastatin [Altoprev]) 40 mg PO QHS [facility] Ondansetron HCl (Ondansetron 4 Mg/2 Ml Inj) 4 mg IV Q8H PRN PRN Reason: Nausea And Vomiting Oxycodone/Acetaminophen (Oxycodone /Acetaminophen 5-325mg Tab) 1 tab PO Q16H PRN PRN Reason: Pain, Moderate (4-6) Potassium Chloride (Potassium Chloride Er 10 Meq Tab) 10 meq PO QDAY [facility] Sodium Chloride (Sodium Chloride 0.9% 10 Ml Flush Syringe) 10 ml IV BID [facility] Sodium Chloride (Sodium Chloride 0.9% 10 Ml Flush Syringe) 10 ml IV PRN PRN PRN Reason: LINE FLUSH Review of Systems Constitutional: no weight loss, no weight gain Ears, nose, mouth and throat: no ear discharge, no tinnitis, no decreased hearing, no nose pain, no nasal congestion, no nasal discharge Breasts: no change in shape Cardiovascular: shortness of breath, dyspnea on exertion, decreased exercise tolerance, no orthopnea, no palpitations Respiratory: no cough, no cough with sputum Gastrointestinal: no nausea, no vomiting, no diarrhea, no constipation, no change in bowel habits Genitourinary Female: no pelvic pain, no flank pain, no menorrhagia, no dysuria Rectal: no pain, no incontinence, no bleeding Musculoskeletal: no neck stiffness, no neck pain, no shooting arm pain, no low back pain, no shooting leg pain, no leg numbness/tingling Integumentary: no rash, no redness, no sores, no jaundice, no boils Neurological: no head injury, no paralysis, no weakness, no numbness Psychiatric: no anxiety, no change in sleep habits, no sleep disturbances, no insomnia, no change in appetite Endocrine: no cold intolerance, no polyphagia, no nocturia, no flushing Hematologic/Lymphatic: no easy bruising, no easy bleeding, no lymphedema Allergic/Immunologic: no urticaria, no wheezing, no anaphylaxis Exam - Constitutional Vitals: Temp Pulse Resp BP Pulse Ox 98.7 F 83 20 175/82 98 12/31/20 13:43 12/31/20 13:43 12/31/20 13:43 12/31/20 13:43 12/31/20 13:43 General appearance: Present: mild distress, obese - EENT Eyes: Present: PERRL ENT: hearing intact, clear oral mucosa - Neck Neck: Present: supple, normal ROM - Respiratory Respiratory effort: normal Respiratory: bilateral: CTA - Cardiovascular Heart Sounds: Present: S1 & S2. Absent: rub, click - Extremities Extremities: pulses symmetrical, No edema Peripheral Pulses: within normal limits - Abdominal General gastrointestinal: Present: soft, non-tender, non-distended, normal bowel sounds Female genitourinary: Present: normal - Integumentary Integumentary: Present: clear, warm, dry - Musculoskeletal Musculoskeletal: gait normal, strength equal bilaterally - Psychiatric Psychiatric: appropriate mood/affect, intact judgment & insight - Neurologic Neurologic: CNII-XII intact, moves all extremities HEART Score - HEART Score EKG: Normal Age: > 65 Risk factors: > 3 risk factors or hx of atherosclerotic disease Troponin: Troponin T < 0.010 ng/mL (0.00-0.029) 12/31/20 14:33 Troponin: < normal limit Results - Labs CBC & Chem 7: 12/31/20 14:33 12/31/20 14:33 Labs: Abnormal lab results 12/31/20 12/31/20 Range/Units 14:33 14:33 RDW 15.4 H (13.2-15.2) % Glucose 141 H (65-100) mg/dL Assessment and Plan - Patient Problems (1) Angina at rest Current Visit: Yes Status: Acute Plan to address problem: Serial cardiac enzymes, EKG, telemetry, cardiology team consulted in ED. Further care and evaluation as per cardiology team. D-dimer ordered and pending at time of admission. (2) Hypertension Current Visit: Yes Status: Acute Qualifiers: Hypertension type: primary hypertension Qualified Code(s): I10 - Essential (primary) hypertension Plan to address problem: Monitor blood pressure every shift, continue medical management (3) Osteoarthritis Current Visit: Yes Status: Acute Qualifiers: Laterality: bilateral Plan to address problem: NSAID therapy, supportive care. Pain control. (4) Obesity (BMI 30.0-34.9) Current Visit: Yes Status: Acute Plan to address problem: Balanced diet, increase physical activity at discharge, outpatient pulmonary follow-up for sleep study. (5) Metabolic syndrome Current Visit: Yes Status: Acute Plan to address problem: Risk factor reduction, weight loss, low-cholesterol diet, increase physical activity discharge (6) Diabetes Current Visit: No Status: Acute Plan to address problem: Consistent carbohydrate diet, hypoglycemia protocol, insulin protocol, Accu- Chek. (7) Hyperlipidemia Current Visit: No Status: Acute Qualifiers: Hyperlipidemia type: mixed hyperlipidemia Qualified Code(s): E78.2 - Mixed hyperlipidemia Plan to address problem: Lipid panel, statin therapy, risk factor reduction, low-cholesterol diet. (8) DVT prophylaxis Current Visit: Yes Status: Acute Plan to address problem: SCD to bilateral lower extremities while in bed, patient is ambulatory (9) Advance care planning Current Visit: Yes Status: Acute Plan to address problem: Disease education conducted, care plan discussed, diagnoses discussed, prognosis discussed, patient is full code. Patient counseled regarding risk factor reduction, increase physical activity at discharge, balanced diet, carbohydrate counting, blood glucose control, patient acknowledges understanding instruction. +30 minutes.
[2020-12-31] MEDS ORDERED: ASPIRIN 325 MG TAB PO ONE (17:26)
[2020-12-31] MEDS ORDERED: DEXTROSE 50% IN WATER (25GM) 50 ML SYRINGE IV PRN (18:59)
[2020-12-31] MEDS ORDERED: PRAVASTATIN 40 MG TAB PO SCH (22:00)
[2020-12-31] MEDS ORDERED: NON-FORMULARY EACH (Lovastatin [Altoprev] 40 MG Tab.Er.24h) PO SCH (22:00)
[2020-12-31] MEDS: FAMOTIDINE 20 MG TAB PO SCH (22:34)
[2020-12-31] MEDS: DOCUSATE SODIUM 100 MG CAP PO SCH (22:37)
[2021-01-01] MEDS: INSULIN LISPRO 100 UNIT/ML SUB-Q SCH ×3 (00:16→12:24)
[2021-01-01 06:46] LABS: BUN/Creatinine Ratio 26; Blood Urea Nitrogen 13 mg/dL (7-17); Calcium 9.2 mg/dL (8.4-10.2); Hemolysis Index 33
--- NOTE | 2021-01-01 09:58 | Consultation ---
History of Present Illness Consult date: 01/01/21 Consult reason: chest pain History of present illness: The patient is a 65-year-old woman with a history of chronic asthma, hyperten mónica and atypical chest pain, seen last in this hospital 2 months ago with some nonspecific shoulder pain. At that time she had an echocardiogram with left ventricular ejection fraction of 55 to 60%. She saw her primary driver supervisor in the outpatient following that, who offered her a stress test, which she declined since she was feeling much better. She presents to the emergency room at this time with chief complaint of shortness of breath which occurred while she was running after a toddler that she was taking care of in her home. There was no chest pain. She thought it was an exacerbation of her asthma, and used her inhalers and began to feel better. Since her presentation in the emergency room and during the hospital admission, there has been no chest pain. EKG is done showed normal sinus rhythm with no ischemic changes. Serial troponin levels x3 were negative. Chest x-ray shows a normal-sized cardiac silhouette and clear lungs. The patient feels better, wants to go home and follow-up with her primary driver supervisor in the office next week. Past History Past Medical History: arthritis, diabetes, hypertension, hyperlipidemia Past Surgical History: , Other (Bilateral carpal tunnel surgery) Social history: single. denies: smoking, alcohol abuse, prescription drug abuse Family history: diabetes, hypertension Medications and Allergies Allergies Allergy/AdvReac Type Severity Reaction Status Date / Time No Known Allergies Allergy Verified 01/01/21 09:21 Home Medications Medication Instructions Recorded Confirmed Last Taken Type Fluticasone [Flonase] 1 spray NS QDAY #1 bottle 10/18/18 01/01/21 10/23/20 Rx Aspirin EC [Halfprin EC] 81 mg PO DAILY 04/15/19 01/01/21 10/23/20 History Lovastatin [Altoprev] 40 mg PO QHS 04/15/19 01/01/21 10/23/20 History amLODIPine 5 mg PO DAILY 04/15/19 01/01/21 10/23/20 History atenoloL [Tenormin] 25 mg PO DAILY 04/15/19 01/01/21 10/23/20 History hydroCHLOROthiazide [HCTZ] 25 mg PO DAILY 02/01/01/21 10/23/20 History metFORMIN [Glucophage] 500 mg PO BID 04/15/19 01/01/21 10/23/20 History Potassium Chloride [K-Dur] 10 meq PO QDAY #5 tablet 09/05/19 01/01/21 10/23/20 Rx Ibuprofen/Famotidine [Duexis 1 each PO TID #20 tablet 10/24/20 01/01/21 Unknown Rx 800-26.6 mg Tablet] Active Meds: Active Medications Acetaminophen (Acetaminophen 325 Mg Tab) 650 mg PO Q4H PRN PRN Reason: Pain MILD(1-3)/Fever >100.5/[facility] Albuterol (Albuterol 2.5 Mg/3 Ml Nebu) 2.5 mg IH Q4HRT PRN PRN Reason: Shortness Of Breath Amlodipine Besylate (Amlodipine 5 Mg Tab) 5 mg PO DAILY [facility] Aspirin (Aspirin Ec 81 Mg Tab) 81 mg PO DAILY [facility] Atenolol (Atenolol 25 Mg Tab) 25 mg PO DAILY [facility] Dextrose (Dextrose 50% In Water (25gm) 50 Ml Syringe) 50 ml IV Q30MIN PRN; Protocol PRN Reason: Hypoglycemia Docusate Sodium (Docusate Sodium 100 Mg Cap) 100 mg PO BID [facility] Last Admin: 12/31/20 22:37 Dose: Not Given Documented by: Famotidine (Famotidine 20 Mg Tab) 20 mg PO BID [facility] Last Admin: 12/31/20 22:34 Dose: 20 mg Documented by: Hydrochlorothiazide (Hydrochlorothiazide 25 Mg Tab) 25 mg PO DAILY [facility] Hydromorphone HCl (Hydromorphone 1 Mg/1 Ml Inj) 0.5 mg IV Q23H PRN PRN Reason: Pain , Severe (7-10) Insulin Human Lispro (Insulin Lispro 100 Unit/Ml) 0 unit SUB-Q Q6HR [facility]; Protocol Last Admin: 01/01/21 05:28 Dose: Not Given Documented by: Meloxicam (Meloxicam 7.5 Mg Tab) 7.5 mg PO QDAY [facility] Ondansetron HCl (Ondansetron 4 Mg/2 Ml Inj) 4 mg IV Q8H PRN PRN Reason: Nausea And Vomiting Oxycodone/Acetaminophen (Oxycodone /Acetaminophen 5-325mg Tab) 1 tab PO Q16H PRN PRN Reason: Pain, Moderate (4-6) Potassium Chloride (Potassium Chloride Er 10 Meq Tab) 10 meq PO QDAY [facility] Pravastatin Sodium (Pravastatin 40 Mg Tab) 40 mg PO QHS [facility] Last Admin: 12/31/20 22:34 Dose: 40 mg Documented by: Sodium Chloride (Sodium Chloride 0.9% 10 Ml Flush Syringe) 10 ml IV BID [facility] Last Admin: 12/31/20 22:36 Dose: 10 ml Documented by: Sodium Chloride (Sodium Chloride 0.9% 10 Ml Flush Syringe) 10 ml IV PRN PRN PRN Reason: LINE FLUSH Review of Systems Cardiovascular: shortness of breath, no chest pain, no orthopnea, no palpitations, no rapid/irregular heart beat, no edema, no syncope, no lightheadedness Physical Examination Vital Signs Temp Pulse Resp BP Pulse Ox 98.7 F 83 20 175/82 98 12/31/20 13:43 12/31/20 13:43 12/31/20 13:43 12/31/20 13:43 12/31/20 13:43 General appearance: no acute distress HEENT: Positive: PERRL Cardiac: Positive: Reg Rate and Rhythm Lungs: Positive: Decreased Breath Sounds Neuro: Positive: Grossly Intact Abdomen: Positive: Soft Female genitourinary: deferred Skin: Positive: Clear Extremities: Absent: edema Results 12/31/20 14:33 01/01/21 04:13 CBC 12/31/20 Range/Units 14:33 WBC 9.2 (4.5-11.0) K/mm3 RBC 4.61 (3.65-5.03) M/mm3 Hgb 13.2 (10.1-14.3) gm/dl Hct 41.1 (30.3-42.9) % Plt Count 315 (140-440) K/mm3 Comprehensive Metabolic Panel 12/31/20 01/01/21 Range/Units 14:33 04:13 Sodium 140 139 (137-145) mmol/L Potassium 3.7 3.4 L (3.6-5.0) mmol/L Chloride 98.8 98.5 (98-107) mmol/L Carbon Dioxide 24 27 (22-30) mmol/L BUN 14 13 (7-17) mg/dL Creatinine 0.6 0.5 L (0.6-1.2) mg/dL Glucose 141 H 119 H (65-100) mg/dL Calcium 9.7 9.2 (8.4-10.2) mg/dL EKG interpretations - Telemetry EKG Rhythm: Sinus Rhythm Assessment and Plan - Patient Problems (1) Shortness of breath Current Visit: Yes Status: Acute Plan to address problem: Patient presented to the hospital with shortness of breath that was reminiscent of an asthma exacerbation, improved symptomatically following nebulizer treatments. She has no chest pain. Serial ECGs are normal. Serial troponins are normal. An echocardiogram done 2 months ago showed normal left ventricular systolic function, ejection fraction 55 to 60%, no significant valvular pathologies. Patient wants to go home, stable cardiac garza for discharge, to follow-up with her primary driver supervisor in 3 to 5 days. At that time she can undergo an outpatient Lexiscan thallium stress test.
[2021-01-01] MEDS ORDERED: hydroCHLOROthiazide 25 MG TAB PO SCH (10:00)
[2021-01-01] MEDS ORDERED: MELOXICAM 7.5 MG TAB PO SCH (10:00)
[2021-01-01] MEDS ORDERED: POTASSIUM CHLORIDE ER 10 MEQ TAB PO SCH (10:00)
[2021-01-01] MEDS ORDERED: ASPIRIN EC 81 MG TAB PO SCH (10:00)
[2021-01-01] MEDS ORDERED: amLODIPine 5 MG TAB PO SCH (10:00)
[2021-01-01] MEDS ORDERED: atenoloL 25 MG TAB PO SCH (10:00)
[2021-01-01] MEDS: FAMOTIDINE 20 MG TAB PO SCH (10:03)
[2021-01-01] MEDS: DOCUSATE SODIUM 100 MG CAP PO SCH (10:04)
--- NOTE | 2021-01-01 10:46 | Discharge Summary ---
Providers - Providers Date of Admission: 12/31/20 17:14 Attending physician: MICHELLE HERNANDEZ MD 01/01/21 08:20 Consult to Physician [CONS] Routine Comment: Consulting Provider: CARLOS A SEGURA Physician Instructions: Reason For Exam: chest pain Primary care physician: SOCIAL SERVICE TECHNICIAN Hospitalization Reason for admission: Shortness of breath Condition: Stable Hospital course: 65 YO Female with Obesity, HTN, HLD, DM, OA, Metabolic Syndrome presents to ED for evaluation. Patient reports "it feels funny when I breathe". Patient states that she has experienced shortness of breath and chest discomfort over the past 1 week with persistent and intermittent symptoms over the same timeframe. Patient knowledges shortness of breath, dyspnea with exertion, chest discomfort. Patient transported to [facility] via private vehicle for further care and evaluation of the aforementioned symptoms. The patient was seen and evaluated in the emergency department. All lab and imaging studies reviewed. Patient found to have clinical symptoms consistent with angina. Patient placed in observation status and admitted to telemetry and initiated on ACS protocol. Patient denies fever, chills, palpitation, productive cough, skin rash, recent ill contacts, or known exposure to COVID-19. Prior admission on 10/23/2020 reviewed. All medication listed at time of admission has been reconciled. Advanced care planning conducted in ED. cardiology team consulted in ED. Patient was admitted and evaluated was given nebulizer treatment with improvement. I did see the patient in conjunction with the manager cardiac this morning she denied any chest pain she said she thought more of her asthma exacerbation as she was watching her grandchild and her nieces child. She says she has clinically improved this morning and is stable and is ready to be discharged. We did discuss possible stress test manager cardiac office for Monday or next week and no strenuous activity until this is done she verbalized understanding. EKG shows normal sinus rhythm echocardiogram was reviewed had a left ejection fraction of 55 to 60% previously I discussed weight loss and lifestyle modification she verbalized understanding. 15 minutes of counseling spent on lifestyle changes. (1) acute shortness of breath secondary to asthma exacerbation s (2) Hypertension Current Visit: Yes Status: Acute Qualifiers: Hypertension type: primary hypertension Qualified Code(s): I10 - Essential (primary) hypertension Plan to address problem: Monitor blood pressure every shift, continue medical management (3) Osteoarthritis Current Visit: Yes Status: Acute Qualifiers: Laterality: bilateral Plan to address problem: NSAID therapy, supportive care. Pain control. (4) Obesity (BMI 30.0-34.9) Current Visit: Yes Status: Acute Plan to address problem: Balanced diet, increase physical activity at discharge, outpatient pulmonary f ollow-up for sleep study. (5) Metabolic syndrome Current Visit: Yes Status: Acute Plan to address problem: Risk factor reduction, weight loss, low-cholesterol diet, increase physical activity discharge (6) Diabetes Current Visit: No Status: Acute Plan to address problem: Consistent carbohydrate diet, hypoglycemia protocol, insulin protocol, Accu- Chek. (7) Hyperlipidemia Current Visit: No Status: Acute Qualifiers: Hyperlipidemia type: mixed hyperlipidemia Qualified Code(s): E78.2 - Mixed hyperlipidemia Plan to address problem: Lipid panel, statin therapy, risk factor reduction, low-cholesterol diet. (8) hypokalemia (9) angina at rest ruled out Disposition: 01 HOME / SELF CARE / HOMELESS Final Discharge Diagnosis (Prints w/discharge instructions): Asthma exacerbation Time spent for discharge: 35-minute Core Measure Documentation - Palliative Care Palliative Care/ Comfort Measures: Not Applicable - Core Measures Any of the following diagnoses?: none Exam - Physical Exam Narrative exam: VITAL SIGNS: Reviewed. GENERAL: The patient appears normally developed, Vital signs as documented. HEAD: No signs of head trauma. EYES: Pupils are equal. Extraocular motions intact. EARS: Hearing grossly intact. MOUTH: Oropharynx is normal. NECK: No adenopathy, no JVD. CHEST: Chest with diminished breath sounds bilaterally. No wheezes, rales, or rhonchi. CARDIAC: Regular rate and rhythm. S1 and S2, without murmurs, gallops, or rubs. VASCULAR: No Edema. Peripheral pulses normal and equal in all extremities. ABDOMEN: Soft, non tender and non distended. No rebound or guarding, and no masses palpated. Bowel Sounds normal. MUSCULOSKELETAL: Good range of motion of all major joints. Extremities without clubbing, cyanosis or edema. NEUROLOGIC EXAM: Alert and oriented x 3 No focal sensory or strength deficits. Speech normal. Follows commands. PSYCHIATRIC: Mood normal. SKIN: detail exam as documented in skin assessment - Constitutional Vitals: Temp Pulse Resp BP Pulse Ox 98.7 F 75 18 146/67 96 01/01/21 07:22 01/01/21 10:02 01/01/21 07:22 01/01/21 10:02 01/01/21 07:22 Plan Activity: advance as tolerated, fall precautions Diet: low fat Special Instructions: record daily weights, record daily BP diary Follow up with: PRIMARY CARE, [Primary Care Provider] - 7 Days DENISE LORENZ MD [Staff Physician] - 3 Days Prescriptions: methylPREDNISolone [Medrol 4MG DOSEPAK (21 tabs)] 4 mg PO . DIRECTED #1 tab.ds.pk Albuterol Mdi (or & Nicu Only) [ProAir HFA Inhaler] 2 puff IH QID PRN 30 Days #1 PRN Reason: Shortness Of Breath
[2021-01-01 10:57] VITALS: BP 119/63
--- NOTE | 2021-01-01 13:03 | Electrocardiograph Report ---
[facility] Test Date: 2020-12-31 Test Time: 14:31:01 Pat Name: MICHAELA PASCUAL Department: Room: A456 1 Gender: F [employer] Specialist: KATIE : 1955 Requested By: SAQIB GALEAS Order Number: [id number] Reading MD: Winsome Sunshine Measurements Intervals [place] Rate: 83 P: 66 [place]: 188 QRS: -5 QRSD: 78 T: 2 QT: 385 QTc: 452 Interpretive Statements Sinus rhythm Left ventricle hypertrophy Nonspecific ST abnormality consider early repolarization Possible old anterior infarct Compared to ECG 10/24/2020 11:31:36 No significant change Electronically Signed On 01-01-2021 13:03:12 EST by Winsome Sunshine
== END 2021-01-01 13:20 | disposition home or self-care (01) ==
LOC: ED 13:24 → 4A 17:14
PROVIDERS: ADMIT Internal Medicine; ATTEND Internal Medicine
DX: I20.8 Other forms of angina pectoris (principal); I10 Essential (primary) hypertension; M19.90 Unspecified osteoarthritis, unspecified site; E11.9 Type 2 diabetes mellitus without complications; E66.9 Obesity, unspecified; E88.81 Metabolic syndrome and other insulin resistance; E87.6 Hypokalemia; E78.2 Mixed hyperlipidemia; Z79.899 Other long term (current) drug therapy; Z98.890 Other specified postprocedural states; Z79.82 Long term (current) use of aspirin; Z79.84 Long term (current) use of oral hypoglycemic drugs; Z68.29 Body mass index [BMI] 29.0-29.9, adult
CPT/HCPCS: 36415; 71046; 80048; 82962; 83880; 84484; 85027; 85379; 93005; 94640; 99285; G0378; Q9967; J1815

== ENCOUNTER 2021-04-04 13:51 | Emergency (ER) | payer MEDICARE ==
[2021-04-04 14:21] VITALS: BP 180/77
--- NOTE | 2021-04-04 15:54 | Emergency Department Report ---
Chief Complaint: Extremity Injury, Upper Stated Complaint: LFT ARM PAIN - HPI History of Present Illness: 65-year-old -[place] female presents to the emergency room complaining of left upper arm pain at the site where she got her booster injection since March 19, 2021. Patient denies any injury to her left arm. States that she has full range of motion is just tender and the pain will come and go. She denies any weakness to that side. States she takes Tylenol and ibuprofen which helps some. - Exam Vital Signs: Vital Signs 04/04/21 14:17 Temperature 98.2 F Pulse Rate 78 Respiratory 20 Rate Blood Pressure 180/77 [Right] O2 Sat by Pulse 98 Oximetry Physical Exam: General: Awake, appropriately interactive, no acute distress. Neck: Supple. Full range of motion intact. Cardiovascular: Normal peripheral perfusion. Pulmonary: No respiratory distress. Patient is speaking normally without use of accessory muscles. Skin: No apparent rashes or lesions. Neurological: No facial asymmetry. Speech is clear. Follows commands. Patient is alert and oriented. Musculoskeletal: Full range of motion, no crepitus. No tenderness to palpate nonerythematous no edema test appreciated. Able to bear weight and ambulate without difficulty. Distal neurovascular and motor/sensory function is intact. Psych: Cooperative. Appropriate mood and affect. MSE screening note: Focused history and physical exam performed. Due to findings the following was ordered: 65-year-old -[place] female presents to the emergency room complaining of left upper arm pain at the site where she got her booster injection since March 19, 2021. Patient denies any injury to her left arm. States that she has full range of motion is just tender and the pain will come and go. She denies any weakness to that side. States she takes Tylenol and ibuprofen which helps some. ED Medical Decision Making - Medical Decision Making 65-year-old -[place] female presents to the emergency room complaining of left upper arm pain at the site where she got her booster injection since March 19, 2021. Patient denies any injury to her left arm. States that she has full range of motion is just tender and the pain will come and go. She denies any weakness to that side. States she takes Tylenol and ibuprofen which helps some. Patient reports that she saw her doctor last week and felt to complaining about this complaint. Discussed with patient this is some side effects at the booster injection/any vaccine injection can cause is muscle pain at the site. Discussed with patient she can use warm compresses Tylenol ibuprofen. ED Disposition for MSE Clinical Impression: Injection site irritation Disposition: HOME / SELF CARE / HOMELESS Is pt being admited?: No Does the pt Need Aspirin: No Condition: Stable Additional Instructions: Please take Tylenol or ibuprofen as needed for pain management. Warm compresses. Follow-up with your primary care provider. Referrals: [facility] [Primary Care Provider] - 3-5 Days [facility] [Provider Group] - 3-5 Days Time of Disposition: 15:39
== END 2021-04-04 15:51 | disposition home or self-care (01) ==
LOC: ED 13:51
DX: R21 Rash and other nonspecific skin eruption (principal); M79.622 Pain in left upper arm
CPT/HCPCS: 99282

== ENCOUNTER 2021-05-07 20:11 | Emergency (ER) | payer MEDICARE ==
[2021-05-08 02:36] VITALS: BP 179/85
--- NOTE | 2021-05-08 04:33 | Emergency Department Report ---
ED General Adult HPI - General Chief complaint: BP Check / Ring removal req Stated complaint: LIGHT HEADED/BLOOD PRESSURE CONCERNS Time Seen by Provider: 05/08/21 02:20 Source: patient Mode of arrival: Ambulatory Limitations: No Limitations - History of Present Illness Initial comments: 65-year-old F [place] female with a known history of hypertension utilizing 3 medications but still reports having episodes of hypertension episodes that occasionally associated with dizziness when present so she seeks further evaluation of her blood pressure emergency department. Currently asymptomatic reports no nausea, no vomiting, no fever, chills, sweats. No current chest pain headache or or dizziness but thinks her blood pressure is elevated. -: Gradual Severity scale (0 -10): 0 Quality: dull Consistency: constant Improves with: none Worsens with: none Associated Symptoms: denies other symptoms. denies: chest pain, diaphoresis, loss of appetite, malaise, shortness of breath, syncope, weakness - Related Data Home Medications Medication Instructions Recorded Confirmed Last Taken Aspirin EC [Halfprin EC] 81 mg PO DAILY 04/15/19 01/01/21 12/30/20 Lovastatin [Altoprev] 40 mg PO QHS 04/15/19 01/01/21 12/31/20 amLODIPine 5 mg PO DAILY 04/15/19 01/01/21 12/31/20 atenoloL [Tenormin] 25 mg PO DAILY 04/15/19 01/01/21 12/31/20 hydroCHLOROthiazide [HCTZ] 25 mg PO DAILY 04/15/19 01/01/21 12/31/20 metFORMIN [Glucophage] 500 mg PO BID 04/15/19 01/01/21 12/31/20 Previous Rx's Medication Instructions Recorded Last Taken Type Potassium Chloride [K-Dur] 10 meq PO QDAY #5 tablet 09/05/19 12/31/20 Rx Albuterol Mdi (or & Nicu Only) 2 puff IH QID PRN 30 Days #1 01/01/21 Unknown Rx [ProAir HFA Inhaler] Docusate Sodium [Colace CAP] 100 mg PO BID capsule 01/01/21 Unknown Rx Meloxicam [Mobic] 7.5 mg PO QDAY tablet 01/01/21 Unknown Rx methylPREDNISolone [Medrol 4MG 4 mg PO . DIRECTED #1 tab.ds.pk 01/01/21 Unknown Rx DOSEPAK (21 tabs)] Allergies Allergy/AdvReac Type Severity Reaction Status Date / Time No Known Allergies Allergy Verified 01/01/21 09:21 ED Review of Systems ROS: Stated complaint: LIGHT HEADED/BLOOD PRESSURE CONCERNS Other details as noted in HPI Comment: All other systems reviewed and negative ED Past Medical Hx - Past Medical History Hx Hypertension: Yes Hx Congestive Heart Failure: No Hx Diabetes: Yes Hx Asthma: Yes Hx COPD: No Additional medical history: High cholesterol, Arthritis in knees - Surgical History Additional Surgical History: Robin Carpel tunnel surgery, C-sections x 2 - Social History Smoking Status: Current Every Day Smoker Substance Use Type: None - Medications Home Medications: Home Medications Medication Instructions Recorded Confirmed Last Taken Type Aspirin EC [Halfprin EC] 81 mg PO DAILY 04/15/19 01/01/21 12/30/20 History Lovastatin [Altoprev] 40 mg PO QHS 04/15/19 01/01/21 12/31/20 History amLODIPine 5 mg PO DAILY 04/15/19 01/01/21 12/31/20 History atenoloL [Tenormin] 25 mg PO DAILY 04/15/19 01/01/21 12/31/20 History hydroCHLOROthiazide [HCTZ] 25 mg PO DAILY 04/15/19 01/01/21 12/31/20 History metFORMIN [Glucophage] 500 mg PO BID 04/15/19 01/01/21 12/31/20 History Potassium Chloride [K-Dur] 10 meq PO QDAY #5 tablet 09/05/19 01/01/21 12/31/20 Rx Albuterol Mdi (or & Nicu Only) 2 puff IH QID PRN 30 Days #1 01/01/21 Unknown Rx [ProAir HFA Inhaler] Docusate Sodium [Colace CAP] 100 mg PO BID capsule 01/01/21 Unknown Rx Meloxicam [Mobic] 7.5 mg PO QDAY tablet 01/01/21 Unknown Rx methylPREDNISolone [Medrol 4MG 4 mg PO . DIRECTED #1 tab.ds.pk 01/01/21 Unknown Rx DOSEPAK (21 tabs)] ED Physical Exam - General Limitations: No Limitations General appearance: alert, in no apparent distress - Head Head exam: Present: atraumatic, normocephalic - Eye Eye exam: Present: normal appearance, PERRL, EOMI - ENT ENT exam: Present: normal exam, mucous membranes moist, TM's normal bilaterally - Neck Neck exam: Present: normal inspection, full ROM - Respiratory Respiratory exam: Present: normal lung sounds bilaterally. Absent: respiratory distress, wheezes, rales, rhonchi, chest wall tenderness, accessory muscle use, prolonged expiratory - Cardiovascular Cardiovascular Exam: Present: regular rate, normal rhythm. Absent: systolic murmur, diastolic murmur, rubs, gallop - GI/Abdominal GI/Abdominal exam: Present: soft, normal bowel sounds - Extremities Exam Extremities exam: Present: normal inspection - Back Exam Back exam: Present: normal inspection - Neurological Exam Neurological exam: Present: alert, oriented X3 - Psychiatric Psychiatric exam: Present: normal affect, normal mood - Skin Skin exam: Present: warm, dry, intact, normal color. Absent: rash ED Course Vital Signs 05/07/21 05/08/21 20:26 02:35 Temperature 98.6 F Pulse Rate 88 77 Respiratory 18 14 Rate Blood Pressure 197/83 Blood Pressure 179/85 [Right] O2 Sat by Pulse 99 99 Oximetry Critical care attestation.: If time is entered above; I have spent that time in minutes in the direct care of this critically ill patient, excluding procedure time. ED Disposition Clinical Impression: Hypertension Disposition: 01 HOME / SELF CARE / HOMELESS Is pt being admited?: No Does the pt Need Aspirin: No Condition: Stable Instructions: Hypertension, Adult, [place], Managing Your Hypertension, Hypertension, Adult, Hypertension (ED) Additional Instructions: Patient emergency department today for your hypertension currently there is no urgent or emergent medical condition present. 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 Please schedule an appointment for follow-up with your primary care physician as soon as possible. Return to emergency department if you expands worsening uncontrolled chest pain, shortness of breath, lightheadedness, feeling faint, nausea, vomiting or any other concerning symptoms. Referrals: JAK STROUD MD [Primary Care Provider] - 3-5 Days
== END 2021-05-08 04:43 | disposition home or self-care (01) ==
LOC: ED 20:11
DX: I10 Essential (primary) hypertension (principal); E11.9 Type 2 diabetes mellitus without complications; J45.909 Unspecified asthma, uncomplicated; F17.200 Nicotine dependence, unspecified, uncomplicated
CPT/HCPCS: 99282